=== PATIENT | female | born 1995 | race Two or more races ===

== ENCOUNTER 2020-01-29 15:34 | Outpatient (REF) | payer MEDICAID, SELFPAY | END 2020-01-29 15:35 | disposition home or self-care (01) | LOC: HO.LAB 15:34 | PROVIDERS: PCP Pediatrics; Visit Provider Internal Medicine | DX: Z20.828 Contact with and (suspected) exposure to other viral communicable diseases (principal) | CPT/HCPCS: C9803; U0003 ==

== ENCOUNTER 2021-12-20 11:33 | Emergency (ER) | payer MEDICAID, SELFPAY ==
--- NOTE | 2021-12-20 | ECG_ITS ---
Test Reason : chest pain Blood Pressure : / mmHG Vent. Rate : 074 BPM Atrial Rate : 074 BPM P-R Int : 154 ms QRS Dur : 098 ms QT Int : 388 ms P-R-T Axes : 074 -03 016 degrees QTc Int : 430 ms Normal sinus rhythm Incomplete right bundle branch block Borderline ECG No previous ECGs available Referred By: Generic ED Physician Electronically Signed By:TAYLER MCCLAIN MD
--- NOTE | ~2021-12-20 | XR_ITS ---
EXAMINATION: XR CHEST CLINICAL INFORMATION: Chest pain COMPARISON: None TECHNIQUE: 2 views of the chest were obtained. FINDINGS: The lungs are well expanded. There is no focal consolidation, edema, or effusion. No pneumothorax. The cardiomediastinal silhouette is within normal limits. No acute osseous abnormality. Scoliotic curvature of the spine. XR/XR chest 2V IMPRESSION: Clear lungs.
[2021-12-20 12:19] VITALS: BP 123/86; PULSE 78; RESP 18; TEMP 37; O2SAT 99; BMI 19.3
[2021-12-20 13:26] LABS: MANUAL DIFF FLAG NO
[2021-12-20 13:28] LABS: Basophils Percent Auto 0.3 % (0-2); Eosinophils Absolute Auto 0.4 X10*3/uL (0.0-0.4); Eosinophils Percent Auto 4.1 % (0-4); Hematocrit 32.7 % (37.0-47.0); Imm Gran Abs Auto 0.03 X10*3/uL (0.00-0.03); Imm Gran Pct Auto 0.3 % (0.0-0.4); Lymphocytes Percent Auto 19.8 % (20-40); Mean Corpuscular HGB Conc 30.6 g/dl (31.0-35.0); Mean Corpuscular Hemoglobin 22.5 pg (27.0-33.0); Mean Corpuscular Volume 73.5 fL (80.0-98.0); Monocytes Absolute Auto 0.7 X10*3/uL (0.1-1.2); Monocytes Percent Auto 7.3 % (2-11); Neutrophils Absolute Auto 6.8 x10*3/uL (2.0-8.3); Neutrophils Percent Auto 68.2 % (45-73); Platelet Count 187 X10*3/uL (160-400); Red Blood Count 4.45 X10*6/uL (4.20-5.50); Red Cell Distribution Width 17.7 % (11.0-16.0)
[2021-12-20 13:42] LABS: Anion Gap 12 (12-20); Blood Urea Nitrogen 7 mg/dL (9-16); Carbon Dioxide 23 mmol/L (22-29); Chloride 107 mmol/L (96-108); Creatinine Clr Calc Pharmacy 115.8; Estimated Glomerular Filt Rate > 60; Glucose Random 90 mg/dL (60-115); Potassium 4.4 mmol/L (3.3-5.1); Sodium 138 mmol/L (135-145)
[2021-12-20 14:31] LABS: Troponin-I High Sensitivity < 3.5 ng/L (<3.5-17.0)
[2021-12-20 17:06] VITALS: BP 115/87; PULSE 68; RESP 16; TEMP 36.8; O2SAT 98
--- NOTE | 2021-12-20 17:06 | ED.CHESTPAIN ---
HPI - Chest Pain General Chief Complaint: Chest Pain Stated Complaint: sent from doctors. CP Time Seen by Provider: 12/20/21 16:47 Source: patient Mode of arrival: ambulatory Limitations: no limitations History of Present Illness HPI narrative: 26-year-old female with a history of asthma, iron deficiency anemia presents with chest tightness since yesterday. Patient reports she felt a tightness while walking and had a little bit of cough and shortness of breath with. She thought maybe her asthma so she used her asthma inhaler with continued symptoms. She is our primary care doctor today and per patient her EKG was abnormal so she was referred into the emergency department for further evaluation. Patient denies any fevers, chills, cough, shortness of breath today. She denies any leg swelling or leg pain. No CP use. Patient did have COVID 3 weeks ago but has recovered from this. No recent travel Patient reports her father has cardiac disease with OK in the past as well as DVTs Related Data Home Medications Medication Instructions Recorded Confirmed ferrous sulfate 325 mg (65 mg 325 mg PO DAILY 01/05/20 01/05/20 iron) tablet Allergies Allergy/AdvReac Type Severity Reaction Status Date / Time No Known Allergies Allergy Unverified 11/05/19 19:33 Review of Systems Review of Systems: Yes all other systems are reviewed and are negative Constitutional: Constitutional: Reports no additional constitutional complaints, Denies body ache(s), Denies chills, Denies fever(s), Denies headache(s) and Denies weakness Eyes: Eyes: Reports no additional eye complaints and Denies change in vision ENT: Reports system reviewed and no additional complaints, except as documented, Denies dizziness, Denies headache(s), Denies nasal congestion, Denies nasal discharge and Denies neck pain Cardiovascular: Cardiovascular: Reports no additional cardiovascular complaints, Reports chest pain, Denies leg edema and Denies dyspnea Respiratory: Respiratory: Reports no additional respiratory complaints, Denies cough and Denies dyspnea Gastrointestinal: Gastrointestinal: Reports no additional gastrointestinal complaints, Denies abdominal pain, Denies diarrhea, Denies nausea and Denies vomiting Genitourinary: Genitourinary: Reports no additional female genitourinary complaints and Denies urinary incontinence Musculoskeletal: Musculoskeletal: Reports no additional musculoskeletal complaints, Denies back pain, Denies arthralgias, Denies joint swelling, Denies neck pain, Denies numbness and Denies tingling Integumentary/Breasts: Skin/Breast: Reports system reviewed and no additional complaints, except as docu and Denies rash Neurologic: Reports system reviewed and no additional complaints, except as documented, Denies Abnormal speech present, Denies dizziness, Denies headache(s), Denies numbness, Denies tingling and Denies weakness PMFSH Past Medical History Attestation statement: The following information was validated with the patient. Source: old records reviewed and nursing notes reviewed Medical History Asthma Chronic knee pain Iron deficiency anemia Low vitamin D level Surgical History H/O tubal ligation Family History Family History Mother Breast cancer Brother Diabetes Social History Social History Alcohol intake: former Advance Directives: No Advance Directives Information Provided: No Physical Exam Vital Signs: Vital Signs: Last Vital Signs Temp 98.2 F 12/20/21 17:06 Pulse 68 12/20/21 17:06 Resp 16 12/20/21 17:06 BP 115/87 12/20/21 17:06 Pulse Ox 98 12/20/21 17:06 O2 Del Method 12/20/21 17:06 BMI result Body Mass Index 19.3 Const: General: cooperative, healthy appearing, comfortable and no acute distress Orientation/consciousness: patient oriented x3 Limitations: no limitations HEENT: Head: Yes normal to inspection Ears: hearing grossly normal bilaterally General nose exam: Normal external nose present Face and sinus: Yes normal facial exam Mouth: Normal oral and palatal mucosa present Throat: Yes posterior oropharynx normal Eyes: General: appearance normal, both eyes and all related structures Pupils: Equal, round and reactive pupils present Neck: Neck: Yes normal visual inspection Chest: Chest palpation & inspection: normal inspection of the chest Resp: Effort & Inspection: normal respiratory effort Auscultation: clear to auscultation bilaterally Cardio: Rate: regular rate Rhythm: regular rhythm Peripheral pulses: Peripheral pulses 2+ throughout GI: Inspection: Yes normal to inspection Palpation (GI): Soft to palpation and nontender Auscultation: normal bowel sounds Back/Spine/Pelvis: Thoracic/Lumbar Spine: thoracic and lumbar spine normal to inspection Skin: General skin exam: no rashes or lesions noted Neuro: General: patient oriented x3, no focal motor deficits and normal sensation to monofilament Cranial nerves: Yes Equal, round and reactive pupils present Cognition (Neuro): normal cognition Speech: No Abnormal speech present Gait exam (Neuro): Normal gait present Motor exam (neuro): 5/5 motor strength present throughout Extrem: General: Yes normal to inspection, Yes no pedal edema and Yes no calf tenderness Course Course Course Narrative: Labs including troponin D-dimer negative. Chest x-ray shows no acute finding. EKG shows some nonspecific changes including an incomplete right bundle branch block. Chest pain is not exertional. Seems atypical for ACS. Will have patient follow-up with her primary care doctor. Reviewed worrisome signs and symptoms of when to return to the emergency room. Comfortable discharge home. MDM - Chest Pain MDM Narrative Medical decision making narrative: 26-year-old man with history of asthma, iron deficiency anemia here with chest tightness since yesterday. Seen at outpatient provider and referred in as she had an abnormal EKG per patient Will check EKG here, obtain labs and chest x-ray Consider PE, ACS, myocarditis Medical Records Data Attestation: I reviewed the patient's medical records. Lab Data Attestation: I reviewed the patient's lab results. Result diagrams: 12/20/21 13:22 12/20/21 13:22 Labs: Lab Results 12/20/21 12/20/21 12/20/21 Range/Units 13:22 13:22 13:22 WBC 10.0 (4.8-10.8) X10*3/uL RBC 4.45 (4.20-5.50) X10*6/uL Hgb 10.0 L (12.0-16.0) g/dl Hct 32.7 L (37.0-47.0) % MCV 73.5 L (80.0-98.0) fL MCH 22.5 L (27.0-33.0) pg MCHC 30.6 L (31.0-35.0) g/dl RDW 17.7 H (11.0-16.0) % Plt Count 187 (160-400) X10*3/uL MPV 12.0 (9.4-12.3) fL Immature Gran % (Auto) 0.3 (0.0-0.4) % Neut % (Auto) 68.2 (45-73) % Lymph % (Auto) 19.8 L (20-40) % [place] % (Auto) 7.3 (2-11) % Eos % (Auto) 4.1 H (0-4) % Baso % (Auto) 0.3 (0-2) % Lymph # (Auto) 2.0 (1.2-4.9) X10*3/uL [place] # (Auto) 0.7 (0.1-1.2) X10*3/uL Eos # (Auto) 0.4 (0.0-0.4) X10*3/uL Baso # (Auto) 0.0 (0.0-0.2) X10*3/uL Abs Immat Gran (auto) 0.03 (0.00-0.03) X10*3/uL Absolute Neuts (auto) 6.8 (2.0-8.3) x10*3/uL Absolute Nucleated RBC 0.000 (0.0-0.012) X10*3/uL Nucleated RBC % (auto) 0.0 (0.0-0.2) /100WBC PT (10.0-13.1) SEC INR (0.9-1.1) D-Dimer High Sensitivty NG/ML Sodium 138 (135-145) mmol/L Potassium 4.4 (3.3-5.1) mmol/L Chloride 107 (96-108) mmol/L Carbon Dioxide 23 (22-29) mmol/L Anion Gap 12 (12-20) BUN 7 L (9-16) mg/dL Creatinine 0.72 (0.5-1.4) mg/dL Estim Creat Clear Calc 115.8 Estimated GFR > 60 Random Glucose 90 (60-115) mg/dL Calcium 9.0 (8.4-10.2) mg/dL Troponin I High Sens < 3.5 (<3.5-17.0) ng/L 12/20/21 Range/Units 17:09 WBC (4.8-10.8) X10*3/uL RBC (4.20-5.50) X10*6/uL Hgb (12.0-16.0) g/dl Hct (37.0-47.0) % MCV (80.0-98.0) fL MCH (27.0-33.0) pg MCHC (31.0-35.0) g/dl RDW (11.0-16.0) % Plt Count (160-400) X10*3/uL MPV (9.4-12.3) fL Immature Gran % (Auto) (0.0-0.4) % Neut % (Auto) (45-73) % Lymph % (Auto) (20-40) % [place] % (Auto) (2-11) % Eos % (Auto) (0-4) % Baso % (Auto) (0-2) % Lymph # (Auto) (1.2-4.9) X10*3/uL [place] # (Auto) (0.1-1.2) X10*3/uL Eos # (Auto) (0.0-0.4) X10*3/uL Baso # (Auto) (0.0-0.2) X10*3/uL Abs Immat Gran (auto) (0.00-0.03) X10*3/uL Absolute Neuts (auto) (2.0-8.3) x10*3/uL Absolute Nucleated RBC (0.0-0.012) X10*3/uL Nucleated RBC % (auto) (0.0-0.2) /100WBC PT 11.7 (10.0-13.1) SEC INR 1.0 (0.9-1.1) D-Dimer High Sensitivty 172 NG/ML Sodium (135-145) mmol/L Potassium (3.3-5.1) mmol/L Chloride (96-108) mmol/L Carbon Dioxide (22-29) mmol/L Anion Gap (12-20) BUN (9-16) mg/dL Creatinine (0.5-1.4) mg/dL Estim Creat Clear Calc Estimated GFR Random Glucose (60-115) mg/dL Calcium (8.4-10.2) mg/dL Troponin I High Sens (<3.5-17.0) ng/L Imaging Data Chest x-ray: Attestation: I personally reviewed and interpreted this imaging study as follows: Radiologist's impression: COMPARISON: None TECHNIQUE: 2 views of the chest were obtained. FINDINGS: The lungs are well expanded. There is no focal consolidation, edema, or effusion. No pneumothorax. The cardiomediastinal silhouette is within normal limits. No acute osseous abnormality. Scoliotic curvature of the spine. XR/XR chest 2V IMPRESSION: Clear lungs. ? ECG Data ECG #1: Attestation: I personally reviewed and interpreted this ECG as follows: ECG interpretation date: 12/20/21 ECG interpretation time: 13:13 Interpretation: Sinus rhythm with a rate of 74, normal DC, normal QRS, incomplete right bundle branch block, Discharge Plan Discharge Clinical Impression: Chest pain Patient Disposition: Home, Self-Care Instructions: Chest Pain (DC) Additional Instructions: Your blood work, EKG and chest x-ray are reassuring Please continue to follow-up with primary care doctor for any persistent symptoms Return to the emergency room if things get worse Prescriptions: No Action ferrous sulfate 325 mg (65 mg iron) Tablet 325 mg PO DAILY Referrals: Carine Tapia MD [Primary Care Provider] - 1 week Stand Alone Forms: Work/School Release
[2021-12-20 17:30] LABS: Prothrombin Time 11.7 SEC (10.0-13.1)
[2021-12-20 17:32] LABS: D Dimer High Sensitivity 172 NG/ML
== END 2021-12-20 18:45 | disposition home or self-care (01) ==
PROVIDERS: Emergency Medicine; Nurse Practitioner Family; Emergency Provider Student in an Organized Health Care Education/Training Program; PCP Pediatrics
DX: R07.89 Other chest pain (principal); R05.9 Cough, unspecified; Z79.899 Other long term (current) drug therapy
CPT/HCPCS: 36415; 71046; 80048; 84484; 85025; 85379; 85610; 93005; 99283; 99284

== ENCOUNTER 2022-04-22 03:24 | Emergency (ER) | payer MEDICAID, SELFPAY ==
[2022-04-22 03:39] VITALS: BP 110/80; PULSE 75; O2SAT 100; BMI 21.6
--- NOTE | 2022-04-22 03:48 | ED_ITS ---
HPI - Alcohol General Chief Complaint: ETOH/Substance Use Stated Complaint: Etoh Time Seen by Provider: 04/22/22 03:40 Source: patient and EMS Mode of arrival: EMS History of Present Illness HPI narrative: 27-year-old female who is brought in by EMS when she was found intoxicated as a passenger but continued to have persistent vomiting and complained of dizziness. Related Data Home Medications Medication Instructions Recorded Confirmed ferrous sulfate 325 mg (65 mg 325 mg PO DAILY 01/05/20 01/05/20 iron) tablet Allergies Allergy/AdvReac Type Severity Reaction Status Date / Time No Known Allergies Allergy Unverified 11/05/19 19:33 Review of Systems Review of Systems: Pertinent positives and negatives as stated in HPI PMFSH Past Medical History Source: nursing notes reviewed Medical History Asthma Chronic knee pain Iron deficiency anemia Low vitamin D level Surgical History H/O tubal ligation Family History Family History Mother Breast cancer Brother Diabetes Social History Social History Alcohol intake: former Smoked in Last 30 Days: No Use of substances other than those prescribed or required for medical reasons: No Advance Directives: No Advance Directives Information Provided: No Patient : No Physical Exam ED Vital Signs: BMI result Body Mass Index 21.6 VITAL SIGNS: Reviewed. GENERAL: Well developed, well nourished, in no acute distress. HEAD: Normocephalic/atraumatic EYES: PERRLA, EOMI LUNGS: Normal breath sounds. No adventitious sounds or accessory muscle use. CARDIOVASCULAR: Regular rate and rhythm without noted murmurs ABDOMEN: Soft, non-tender, non-distended with bowel sounds. NEUROLOGIC: Drowsy but arouseable and oriented x 3. Strength and sensation to light touch were grossly intact x 4. Medical Decision Making Medical Decision Making [facility] Narrative: 27-year-old female who arrives intoxicated she will need to remain here under observation and states that she is able to call her on-call for a ride. Attem pts to ambulate her at bedside were limited success as she is still not entirely steady on her feet. Patient placed in physician observation because the patient needed more time to sober up. At the time observation was started the patient's vital signs were stable, patient is alert and oriented, neuro: Nonfocal, CV RRR, lungs clear Differential Diagnosis Please see the discussion above Discharge Plan Discharge Clinical Impression: Alcoholic intoxication Patient Disposition: Still a Patient Prescriptions: No Action ferrous sulfate 325 mg (65 mg iron) Tablet 325 mg PO DAILY Interventions: [place]-Suicide Risk Severity Scale Last Done: 04/22/22 03:46
--- NOTE | 2022-04-22 03:50 | PC.NURSE ---
pt aox4, n/v
[2022-04-22 06:00] VITALS: BP 132/89; PULSE 79; RESP 16; TEMP 36.8; O2SAT 100
--- NOTE | 2022-04-22 06:50 | PC.NURSE ---
pt eloped after agreeing to have labs done, while this nurse was collecting supplies for labs to be drawn pt eloped elopement was confirmed with security after looking at security cameras
== END 2022-04-22 07:15 | disposition left against medical advice (07) ==
PROVIDERS: Emergency Provider Student in an Organized Health Care Education/Training Program; PCP Pediatrics
DX: F10.129 Alcohol abuse with intoxication, unspecified (principal); R42 Dizziness and giddiness; R11.10 Vomiting, unspecified; Y90.9 Presence of alcohol in blood, level not specified
CPT/HCPCS: 99284; 99285

== ENCOUNTER 2023-06-25 09:32 | Outpatient (REF) | payer MEDICAID, SELFPAY ==
[2023-06-25 14:14] LABS: MANUAL DIFF FLAG NO
[2023-06-25 14:27] LABS: Basophils Absolute Auto 0.1 X10*3/uL (0.0-0.2); Eosinophils Absolute Auto 0.8 X10*3/uL (0.0-0.4); Hematocrit 34.3 % (37.0-47.0); Hemoglobin 10.9 g/dl (12.0-16.0); Lymphocytes Percent Auto 32.6 % (20-40); Mean Corpuscular HGB Conc 31.8 g/dl (31.0-35.0); Mean Corpuscular Hemoglobin 23.6 pg (27.0-33.0); Mean Corpuscular Volume 74.4 fL (80.0-98.0); Monocytes Absolute Auto 0.4 X10*3/uL (0.1-1.2); Monocytes Percent Auto 6.4 % (2-11); Neutrophils Absolute Auto 2.8 x10*3/uL (2.0-8.3); Platelet Count 186 X10*3/uL (160-400); Red Blood Count 4.61 X10*6/uL (4.20-5.50); Red Cell Distribution Width 16.8 % (11.0-16.0)
[2023-06-25 15:24] LABS: Iron 65 mcg/dL (30-160); Percent Iron Saturation 17 % (15-50); Total Iron Binding Capacity 393 mcg/dL (228-428); Unsaturated Iron Binding 328 ug/dL; Vitamin D 25-OH Total 25.2 ng/mL (>30)
[2023-06-25 16:18] LABS: CT PCR NOT DETECTED (Not Detect.); NG PCR NOT DETECTED (Not Detect.)
[2023-06-26 03:37] LABS: Syphilis Screen Nonreactive (Nonreactive)
[2023-06-26 04:22] LABS: HIV AB/AG Nonreactive (Nonreactive); HIV Num 1 0.04 S/CO (0.00-0.99); ~HepC Num1 0.12 S/CO (0.00-0.79); ~Hepatitis C Antibody Nonreactive (Nonreactive)
[2023-06-28 11:09] LABS: TS Negative Control Passed; TS Panel A 0; TS Panel B 0; TS Positive Control Passed; TSpotTB Negative (Negative)
== END 2023-06-25 09:33 | disposition home or self-care (01) ==
LOC: HO.CHCLDS 09:32
PROVIDERS: Visit Provider Pediatrics
DX: Z00.00 Encounter for general adult medical examination without abnormal findings (principal); Z11.4 Encounter for screening for human immunodeficiency virus [HIV]; Z11.1 Encounter for screening for respiratory tuberculosis; D50.0 Iron deficiency anemia secondary to blood loss (chronic); R79.89 Other specified abnormal findings of blood chemistry
CPT/HCPCS: 0353U; 36415; 82306; 83540; 85025; 86481; 86780; 86803; 87389

== ENCOUNTER 2023-10-11 09:38 | Outpatient (REF) | payer MEDICAID, SELFPAY ==
[2023-10-11 14:19] LABS: MANUAL DIFF FLAG NO
[2023-10-11 14:46] LABS: Basophils Percent Auto 0.9 % (0-2); Eosinophils Absolute Auto 0.4 X10*3/uL (0.0-0.4); Eosinophils Percent Auto 8.5 % (0-4); Hematocrit 36.5 % (37.0-47.0); Hemoglobin 11.7 g/dl (12.0-16.0); Lymphocytes Absolute Auto 1.8 X10*3/uL (1.2-4.9); Lymphocytes Percent Auto 39.2 % (20-40); Mean Corpuscular HGB Conc 32.1 g/dl (31.0-35.0); Mean Corpuscular Hemoglobin 25.8 pg (27.0-33.0); Mean Corpuscular Volume 80.6 fL (80.0-98.0); Mean Platelet Volume 13.8 fL (9.4-12.3); Monocytes Absolute Auto 0.3 X10*3/uL (0.1-1.2); Monocytes Percent Auto 6.8 % (2-11); Neutrophils Percent Auto 44.6 % (45-73); Platelet Count 189 X10*3/uL (160-400); Red Blood Count 4.53 X10*6/uL (4.20-5.50); Red Cell Distribution Width 14.3 % (11.0-16.0); White Blood Count 4.6 X10*3/uL (4.8-10.8)
[2023-10-11 15:10] LABS: Syphilis Screen Nonreactive (Nonreactive)
[2023-10-11 15:12] LABS: HIV AB/AG Nonreactive (Nonreactive); HIV Num 1 0.05 S/CO (0.00-0.99); ~HepC Num1 0.29 S/CO (0.00-0.79); ~Hepatitis C Antibody Nonreactive (Nonreactive)
[2023-10-11 15:18] LABS: Vitamin D 25-OH Total 27.9 ng/mL (>30)
[2023-10-11 15:24] LABS: Folate 8.3 ng/mL (> or = 4.0); Vitamin B12 610 pg/mL (200-900)
[2023-10-11 16:07] LABS: CT PCR NOT DETECTED (Not Detect.); NG PCR NOT DETECTED (Not Detect.)
== END 2023-10-11 09:39 | disposition home or self-care (01) ==
LOC: HO.CHCLDS 09:38
PROVIDERS: Visit Provider Pediatrics
DX: R79.89 Other specified abnormal findings of blood chemistry (principal); D50.0 Iron deficiency anemia secondary to blood loss (chronic); Z11.3 Encounter for screening for infections with a predominantly sexual mode of transmission
CPT/HCPCS: 36415; 82306; 82607; 82746; 85025; 86780; 86803; 87389; 87491; 87591

== ENCOUNTER 2024-04-23 14:16 | Outpatient (REF) | payer MEDICAID, SELFPAY ==
--- OUTSIDE RECORDS SUMMARY | 2024-04-23 17:31 | XMS_ITS | Encounter Summary ---
Author Organization [employer] Address [address] [place] [address] Care Team Providers Care Mill Machinist Name Role Phone Carine Tapia MD Primary Care Provider [phone] Reason for Visit * Reason Onset Date Comments Appointment Request 05/21/2022 Encounter Details Date Type Department Care Team ([facility] st Contact Info) Description 05/21/2022 Telephone [facility] [address] [place] [address] Carine Tapia MD [address] [place] [address] Appointment Request Social History Tobacco Use Types Packs/Day Years Used Date Smoking Tobacco: Never Assessed Comments Unknown Sex and Gender Information Value Date Recorded Sex Assigned at Female 12/18/2021 10:34 AM EDT Legal Sex Female 10:34 AM EDT Gender Identity Female 12/18/2021 10:34 AM EDT Sexual Orientation Straight 12/18/2021 10 :34 AM EDT documented as of this encounter Miscellaneous Notes * Telephone Encounter - Doug Lee - 05/21/2022 10:31 AM EDT Tc from pt requesting a Appt for a physical exam, pt stated work is requiring pt to have an updatedphysical. Animal Damage Control Agent attempted to book appt with PCP no available appt. Pt stated wont mind being seen by a different provider. Please contact pt at [phone] documented in this encounter Plan of Treatment Not on file documented as of this encounter Visit Diagnoses Not on filedocumented in this encounter Care Teams Mill Machinist Relationship Specialty Start Date End Date Carine Tapia MD [address] [place] [id number] PCP - General Family Medicine 10/23/17 documented as of this encounter
--- OUTSIDE RECORDS SUMMARY | 2024-04-23 17:31 | XMS_ITS | Encounter Summary ---
Author Organization [employer] Address [address] [place] [address] Care Team Providers Care Leather Drier Name Role Phone Carine Tapia MD Primary Care Provider Encounter Details Date Type Department Care Team (Latest Contact Info) Description 04/23/2024 Travel Social History Tobacco Use Types Packs/Day Years Used Date Smoking Tobacco: Never Passive Smoke Exposure: Never Smokeless Tobacco: Never Alcohol Answer Date Recorded Frequency of Alcohol Consumption Not on file 06/25/2023 Average Number of Drinks Not on file 024 Frequency of Binge Drinking Not on file 08/2023 Score 0 06/25/2023 Depression Answer Date Recorded Patient Health Questionnaire-9 Score 8 06/25/2023 Patient Health Questionnaire-9 Score 8 06/25/2023 Last PHQ-9: Questionnaire Data Not on file 0 06/25/2023 Housing Stability Answer Date Recorded What is your housing situation today? I have efrain whitman 06/25/[address] you li ve. Do you have problems with any of the following? None of the above 06/25/2023 Food Insecurity Answer Date Recorded Within the past 12 months, y ou worried that your food would run out before you got money to buy more: Never True 06/25/2023 Within the past 12 months,th e food you bought just didn't last and you didn't have enough money to get more: Never True 08/2023 Transportation Answer Date Recorded In the past 12 months, has l ack of transportation kept you from medical appts, meetings, work or from getting things needed for daily living? No 06/25/2023 Utilities Answer Date Recorded In the past 12 months, has t he electric, gas, oil or water company threatened to shut off services in your home? No 06/25/2023 Depression Answer Date Recorded Patient Health Questionnaire-2 Score 2 06/25/2023 Comments Unknown Sex and Gender Information Value Date Recorded Sex Assigned at Female 12/18/2021 10:34 AM EDT Legal Sex Female 10:34 AM EDT Gender Identity Female 12/18/2021 10:34 AM EDT Sexual Orientation Straight 12/18/2021 10 :34 AM EDT documented as of this encounter Plan of Treatment Not on file documented as of this encounter Visit Diagnoses Not on filedocumented in this encounter Additional Health Concerns Assessment Noted Time PHQ-9 Depression Total Score: 8 06/25/19 24 9:12 AM EDT documented as of this encounter Care Teams Leather Drier Relationship Specialty Start Date End Date Carine Tapia MD [address] [place] [address] PCP - General Family Medicine 10/23/17 documented as of this encounter
--- OUTSIDE RECORDS SUMMARY | 2024-04-23 17:31 | XMS_ITS | Encounter Summary ---
Author Organization [employer] Address [address] [place] [address] [address] [place] [address] Care Team Providers Care Glass Grinder Name Role Phone Carine Tapia MD Primary Care Provider [phone] Reason for Referral * Consultation (Routine) - Closed Specialty Diagnoses / Procedures Referred By Contashley t Referred To Contact Genetics Diagnoses Family history of breast cancer in mother Family history of ovarian cancer Carine Tapia MD [address] [place] [address] Phone: tel: fax: [address] Phone: tel: fax: Referral ID Status Reason Start Date Expiration Date V isits Requested Visits Authorized [id number] Closed Specialty Services Required 04/23/2024 04/23/2025 1 1 Encounter Details Date Type Department Care Team (Latest Contact Info) Description 04/23/2024 9:30 AM EST Procedure Visit [facility] [address] [place] [address] Carine Tapia MD [address] [place], [place] [id number] Encounter for gynecological examination (general) (routine) without abnormal findings (Primary Dx); Family history of breast cancer in mother; Family history of ovarian cancer Social History Tobacco Use Types Packs/Day Years [...] your housing situation today? I have efrain j carlos 06/25/[address] you li [...] AM EDT documented as of this encounter Last Filed Vital Signs Vital Sign Reading Time Taken Comments Blood Pressure 126/93 04/23/2024 9:28 AM EST Pulse 86 04/23/2024 9:28 AM EST Temperature 36.8 ??C (98.3 ??F) 04/23/2024 9:28 AM ES T Respiratory Rate 16 04/23/2024 9:28 AM EST Oxygen Saturation 100% 04/23/2024 9:28 AM EST Inhaled Oxygen Concentration - - Weight 66.7 kg (147 lb) 04/23/2024 9:28 AM EST Height 172.7 cm (5' 8 ) 04/23/2024 9:28 AM EST Body Mass Index 22.35 04/23/2024 9:28 AM EST documented in this encounter Progress Notes * Carine Tapia MD - 04/23/2024 9:30 AM EST Subjective Norris Butler is a 29 y.o. No obstetric history on file. woman here for pap. LMP: 04/03/24 Menses frequency:monthly Menses concerns:none Desires within the next year:no Brith control: tubal ligation Breast concerns: breast pain sometimes Negative for: nipple discharge,lumps etc.. Menopausal symptoms : N/A Review of Systems Review of Systems Constitutional: Negative for activity change, chills, fever and unexpected weight change. Respiratory: Negative for cough, shortness of breath and wheezing. Cardiovascular: Negative for chest pain, palpitations and leg swelling. Gastrointestinal: Negative for abdominal pain and blood in stool. Endocrine: Negative for polydipsia and polyuria. Genitourinary: Negative for decreased urine volume, difficulty urinating, dysuria and hematuria. Musculoskeletal: Negative for arthralgias and gait problem. Skin: Negative for color change and rash. Neurological: Negative for dizziness and headaches. Hematological: Negative for adenopathy. Psychiatric/Behavioral: Negative for dysphoric mood, hallucinations, sleep disturbance and suicidalideas. The patient is not nervous/anxious. No results found for: PAPPA No results found for: [facility] Previous paps:normal in 2020 Mammogram: N/A Objective BP (!) 126/93 (BP Location: Left arm, Patient Position: Sitting, BP Cuff Size: Adult) Pulse 86 Temp 98.3 ??F (36.8 ??C) (Oral) Resp 16 Ht 5' 8 (1.727 m) Wt 147 lb (66.7 kg) LMP 04/06/2024 (Exact Date) SpO2 100% BMI 22.35 kg/m?? Physical Exam Vitals reviewed. Exam conducted with a rehabilitation center manager present. Constitutional: Appearance: Normal appearance. Cardiovascular: Rate and Rhythm: Normal rate and regular rhythm. Chest: Chest wall: No mass, deformity or tenderness. Breasts: Dre Score is 5. Right: Normal. No bleeding, inverted nipple, mass, nipple discharge, skin change or tenderness. Left: Normal. No bleeding, inverted nipple, mass, nipple discharge, skin change or tenderness. Genitourinary: Exam position: Lithotomy position. Dre stage (genital): 5. Labia: Right: No rash, lesion or injury. Left: No rash, lesion or injury. Vagina: Normal. Cervix: Erythema present. No cervical motion tenderness, friability or lesion. Uterus: Normal. Not tender. Adnexa: Right: No mass, tenderness or fullness. Left: No mass, tenderness or fullness. Lymphadenopathy: Upper Body: Right upper body: No axillary adenopathy. Left upper body: No axillary adenopathy. Problem List Items Addressed This Visit None Pap with HPV testing done STI testing offered, PreP not needed, 1 partner Preventative care and harm reduction discussed Has TBL for control RTC in 6 months.Sooner if needed.Call with results if abnormal. Referral to genetics done due to family hx of breast and ovarian Cancer on maternal side.Patient agrees. documented in this encounter Plan of Treatment Scheduled Orders Name Type Priority Associated Diagnoses Orde r Schedule Pap Smear Pathology and Cytology Routine Encounter for gynecological examination (general) (routine) without abnormal findings Ordered: 04/23/2024 STI testing add on (NG, CT, Trich) Pathology and Cytology Routine Encounter for gynecological examination (general) (routine) without abnormal findings Ordered: 04/23/2024 Scheduled Referrals Name Type Priority Associated Diagnoses Orde r Schedule Referral to Genetics Outpatient Referral Routine Family history of breast cancer in mother Family history of ovarian cancer Expected: 04/23/2024 (Approximate), Expires: 04/23/2025 documented as of this encounter Visit Diagnoses Diagnosis Encounter for gynecological examination (general) (routine) without abnormal findings- Primary Family history of breast cancer in mother Family history of malignant neoplasm of breast Family history of ovarian cancer Family history of malignant neoplasm of ovary documented in this encounter Additional Health Concerns Assessment Noted Time PHQ-9 Depression Total Score: 8 06/25/19 24 9:12 AM EDT documented as of this encounter Care Teams Glass Grinder Relationship Specialty Start Date End Date Carine Tapia MD [address] [place] [id number] PCP - General Family Medicine 10/23/17 documented as of this encounter
--- OUTSIDE RECORDS SUMMARY | 2024-04-23 17:31 | XMS_ITS | Clinical Summary ---
Author Organization [employer] Address [address] [facility] 7t [place] [address] Care Team Providers Care Metaphysics Teacher Name Role Phone Carine Tapia MD Primary Care Provider [phone] Allergies No known active allergies Medications Albuterol Sulfate 108 (90 Base) MCG/ACT aerosol powder Inhale 1 Inhalation every 6 (six) hours if needed (shortness of breath). 1 each 2 3 Active albuterol (2.5 MG/3ML) 0.083% nebulizer solution Take 3 mL by nebulization every 8 (eight) hours if needed for wheezing. 75 mL 3 3 Active amitriptyline (Elavil) 25 MG tablet Take 1 tablet (25 mg) by mouth at bedtime. 30 tablet 5 4 Active fluticasone (Flonase) 50 MCG/ACT nasal spray USE ONE SPRAY IN EACH NOSTRIL DAILY 16 g 11 4 Active ibuprofen 400 MG tablet TAKE 1 TABLET BY MOUTH EVERY 8 HOURS NEEDED FOR PAIN 90 tablet 3 4 Active cholecalciferol (Vitamin D-3) 50 MCG (2000 UT) capsule Take 1 capsule (50 mcg) by mouth Once per day. 90 capsule 11 4 Active ferrous sulfate 325 (65 Fe) MG tablet Take 1 tab orally bid 60 tablet 4 Active Active Problems Problem Noted Date Diagnosed Date Adjustment insomnia 06/25/2023 Asthma 11/15/2022 Upper respiratory infection 11/15/2022 Assessment & Plan (02/07/2023 11:07 PM EST): Pt with symptoms of likely viral URI wnl VS Exam : ENT and lungs normal -hydration supportive tx w tylenol , NSAIDs prn -alarm signs and symptoms discussed -rest at home until better -advised to repeat test for covid if symptoms worsening to confirm result Assessment & Plan (11/15/2022 11:48 PM EDT): Pt with symptoms of likely viral URI wnl VS Exam : with nasal congestion , no currently wheezing on exam but symptoms consistent w mild asthma exacerbation reactive to infection Here flu,covid test are neg EKG: NSR,no ischemic findings - hydration supportive tx w tylenol , NSAIDs prn -alarm signs and symptoms discussed -rest at home until better -advised to repeat test for covid if symptoms worsening to confirm result Environmental allergies 06/22/2022 Iron deficiency anemia due to chronic blood loss 01/23/2018 Low vitamin D level 01/23/2018 Encounters Date Type Department Care Team Description 04/23/2024 9:30 AM EST Procedure Visit [facility] [address] [place] [address] Carine Tapia MD Encounter for gynecological examination (general) (routine) without abnormal findings (Primary Dx); Family history of breast cancer in mother; Family history of ovarian cancer 04/23/2024 Travel from Last 3 Months Immunizations Name Administration Dates Next Due Influenza injectable quadrivalent preservative f ree 01/25/2021 Influenza, seasonal, injectable, preservative fr ee 11/08/2023 Tdap 04/21/2019 Family History Medical History Relation Name Comments Ovarian cancer Maternal Grandmother Breast cancer Mother Relation Name Status Comments Maternal Grandmother Mother Social History Tobacco Use Types Packs/Day Years Used Date Smoking Tobacco: Never Passive Smoke Exposure: Never Smokeless Tobacco: Never Tobacco Cessation:Counseling Given: Not Answered Alcohol Answer Date Recorded Frequency of Alcohol [...] Orientation Straight 12/18/2021 10 :34 AM EDT Last Filed Vital Signs Vital Sign Reading [...] Mass Index 22.35 04/23/2024 9:28 AM EST Plan of Treatment Health Maintenance Due Date Last Done Comments Hepatitis B Vaccines (1 of 3 - 19+ 3-dose series) 02/01/2012 Pneumococcal Vaccine: Pediatrics (0 to 5 Years) and At-Risk Patients (6 to 49) Years) (1 of 2 - PCV) 02/01/2012 HPV/Cotest 2023 COVID-19 Vaccine ( season) 2023 01/30/2022, 02/22/2021, 07/25/2020 Cervical Cancer Screening 01/26/2024 Pap Smear 01/26/2024 01/25/2021 Alcohol/Substance Use Screening 06/24/2024 06/25/2023 Depression Screening 06/24/2024 06/25/2023, 06/25/19 24 Family Planning (PISQ) 06/24/2024 06/25/2023 SDOH Screening 06/24/2024 06/25/2023 Tobacco Screening 04/23/2025 04/23/2024 DTaP/Tdap/Td Vaccines (2 - Td or Tdap) 04/20/2029 04/21/2019 Zoster Vaccines (1 of 2) 2043 RSV Patients and Patients Aged 60 years or older (1 - 1-dose 75+ series) 02/01/2068 HIV Screening Completed 10/11/2023, 05/0 08/2023, 06/22/2022, Additional history exists Hepatitis C Screening Completed 10/11/2023 , 06/25/2023, 06/22/2022, Additional history exists Influenza Vaccine Completed 11/08/2023, 01/25/2021 HIB Vaccines Aged Out No longer eligi ble based on patient's age to complete this topic HPV Vaccines Aged Out No longer eligi ble based on patient's age to complete this topic Hepatitis A Vaccines Aged Out No long er eligible based on patient's age to complete this topic IPV Vaccines Aged Out No longer eligi ble based on patient's age to complete this topic Meningococcal Vaccine Aged Out No shraddha cherelle eligible based on patient's age to complete this topic RSV under 20 months Aged Out No longe r eligible based on patient's age to complete this topic Rotavirus Vaccines Aged Out No longer eligible based on patient's age to complete this topic Procedures Procedure Name Priority Date/Time Associated Diagnosis Comments HEPATITIS C AB W/REFL TO HCV RNA, QN, PCR Routine 10/11/2023 9:40 AM EDT Low vitamin D level Iron deficiency anemia due to chronic blood loss Routine screening for STI (sexually transmitted infection) HIV 1/2 ANTIGEN/ANTIBODY, FOURTH GENERATION W/RFL Routine 10/11/2023 9:40 AM EDT Low vitamin D level Iron deficiency anemia due to chronic blood loss Routine screening for STI (sexually transmitted infection) THINPREP IMAGING SYSTEM PAP Routine 01/25/2021 9:38 AM EST from Last 3 Months or Most Recently Relevant to Health Maintenance Results * Hepatitis C Antibody with Reflex to HCV, RNA, Quantitative, Real-Time PCR (10/11/2023 9:40 AM EDT) Hepatitis C Antibody Nonreactive Nonreactive [facility] Comment:Antibodies to HCV no t detected; does not exclude early acuteHCV infection. Blood Venous blood specimen / Unknown 10/11/2023 9:40 AM EDT 10/11/2023 2:19 PM EDT us Carine Tapia MD LAB BLOOD ORDERABLES Final Re sult [facility] [address] [place] [address] [phone] * HIV-1/2 Antigen and Antibodies, Fourth Generation, with Reflexes (10/11/2023 9:40 AM EDT) HIV AB/AG Nonreactive Nonreactive [facility] Comment:HIV-1 p24 Ag and/or HIV-1/HIV-2 Ab not detected.A test result that is nonreactive does not exclude thepossibility of exposure to or infection with HIV-1 and/orHIV-2. Nonreactive results in this assay for individualswith prior exposure to HIV-1 and/or HIV-2 may be due toantigen and antibody levels that are below the limit ofdetection of this assay.The [email or web address] HIV Ag/Ab Combo assay result andsupplemental assay results should be interpreted inconjunction with the patient's clinical presentation,history and other laboratory results. If the results areinconsistent with clinical evidence, additional testing issuggested to confirm the result. Blood Venous blood specimen / Unknown 10/11/2023 9:40 AM EDT 10/11/2023 2:19 PM EDT us Carine Tapia MD LAB BLOOD ORDERABLES Final Re sult Performing Organization Address [facility]/ZIP Co de Phone Number [facility] [address] [place] [address] [phone] * THINPREP TIS PAP (01/25/2021 9:38 AM EST) Clinical Information: None given [facility] COMMENT SEE COMMENT [facility] Comment: EXPLANATORY NOTE: ? The Pap is a screening test for cervical cancer. It is ?? not a diagnostic test and is subject to false negative ?? and false positive results. It is most reliable when a ?? satisfactory sample, regularly obtained, is submitted ?? with relevant clinical findings and history, and when ?? the Pap result is evaluated along with historic and ?? current clinical information. ?? COMMENT: This Pap test has been evaluated with computer assisted technology. [employer] [employer] : SEE COMMENT [facility] Comment: BLC,CT(ASCP) CT screening location: [address] ??[id number] Infection Shift in vaginal dillon suggestive of bacterial vaginosis. [facility] Interpretation/R esult: Negative for intraepithelial lesion or malignancy. [employer] LMP: NONE GIVEN [facility] Prev. BX: NONE GIVEN [facility] Prev. PAP: NONE GIVEN [facility] SOURCE: None given [facility] Statement Of Adequacy: SEE COMMENT [employer] [facility] Comment: Satisfactory for evaluation. Endocervical/transformation zone component present. Age and/or menstrual status not provided 01/25/2021 9:38 AM EST us Carine Tapia MD LAB PATHOLOGY ORDERABLES Paige l Result Performing Organization Address [facility]/ZIP Co de Phone Number [employer] [address] from Last 3 Months or Most Recently Relevant to Health Maintenance Insurance [facility] C3 Care Teams Metaphysics Teacher Relationship Specialty Start Date End Date Carine Tapia MD [address] [place] [id number] PCP - General Family Medicine 10/23/17
== END 2024-04-23 14:17 | disposition home or self-care (01) ==
LOC: HO.HHCLNP 14:16
PROVIDERS: Visit Provider Pediatrics
DX: Z01.419 Encounter for gynecological examination (general) (routine) without abnormal findings (principal)
CPT/HCPCS: 87491; 87591; 87661; 88175

== ENCOUNTER 2024-06-19 14:13 | Outpatient (REF) | payer MEDICAID, SELFPAY ==
--- OUTSIDE RECORDS SUMMARY | 2024-06-19 14:30 | XMS_ITS | Encounter Summary ---
Author Organization [employer] Address [address] [facility] [address] [place] [address] Care Team Providers Care Weight Count Operator Name Role Phone Carine Tapia MD Primary Care Provider [phone] Encounter Details Date Type Department Care Team (Latest Contact Info) Description 06/19/2024 Travel Social History Tobacco Use Types Packs/Day [...] as of this encounter Plan of Treatment Upcoming Encounters Date Type Department Care Team (Late st Contact Info) Description 08/04/2024 9:15 AM EDT Office Visit [facility] [address] [place] [address] Carine Tapia MD [address] [place] [address] documented as of this encounter Visit Diagnoses Not on filedocumented in this encounter Additional Health Concerns Assessment Noted Time PHQ-9 Depression Total Score: 8 06/25/19 24 9:12 AM EDT documented as of this encounter Care Teams Weight Count Operator Relationship Specialty Start Date End Date Carine Tapia MD [address] [place] [address] PCP - General Family Medicine 10/23/17 documented as of this encounter
--- OUTSIDE RECORDS SUMMARY | 2024-06-19 14:30 | XMS_ITS | Encounter Summary ---
Author Organization [employer] Address 75 [facility] 7t [place] [address] Care Team Providers Care Cleaning Staff Supervisor Name Role Phone Carine Tapia MD Primary Care Provider [phone] Reason for Visit * Reason Onset Date Comments Nurse Triage 06/19/2024 Encounter Details Date Type Department Care Team ([facility] st Contact Info) Description 06/19/2024 Telephone [facility] [address] [place] [address] Carine Tapia MD [address] [place] [address] Nurse Triage Social History Tobacco Use Types Packs/Day Years [...] encounter Miscellaneous Notes * Telephone Encounter - Tova Raza RN - 06/19/2024 9:51 AM EDT Called pt. She states that she has been having pain in her stomach and blood in urine x 1 week. Pt states also that she has pain and bleeding with intercourse as well. Pt. Also thinks she has a cellulitis in her vaginal area and has a bump inside vaginal area that is painful. No fever. Appt. Scheduled for 1130am with PCP. Protocol Used: Urination Pain - Female (Adult) Protocol-Based Disposition: See in Office or Video Visit Todayat 1130am with PCP. Video visit offer not recorded Positive Triage Questions: * Painful urination AND EITHER frequency or urgency * All other females with painful urination, or patient wants to be seen * All higher-acuity triage questions were negative Care Advice Discussed: * Reassurance and Education - Possible Urine Infection * Drink Extra Fluids * Telephone Encounter - Tanesha Lei - 06/19/2024 9:44 AM EDT Symptom: Urine - Blood In Outcome: Schedule an urgent appointment (within 1 hour) or talk to a nurse or provider soon Reason: Caller denied all higher acuity questions The caller accepted this outcome. [phone] documented in this encounter Plan of Treatment Upcoming Encounters Date Type Department Care Team ([facility] st Contact Info) Description 08/04/2024 9:15 AM EDT Office Visit [facility] [address] [place] [address] Carine Tapia MD [address] [place] [address] documented as of this encounter Visit Diagnoses Not on filedocumented in this encounter Additional Health Concerns Assessment Noted Time PHQ-9 Depression Total Score: 8 06/25/19 24 9:12 AM EDT documented as of this encounter Care Teams Cleaning Staff Supervisor Relationship Specialty Start Date End Date Carine Tapia MD [address] [place] [address] PCP - General Family Medicine 10/23/17 documented as of this encounter
--- OUTSIDE RECORDS SUMMARY | 2024-06-19 14:30 | XMS_ITS | Encounter Summary ---
Author Organization [employer] Address 75 [facility] 7t [place] [address] Care Team Providers Care General Labor Name Role Phone Carine Tapia MD Primary Care Provider [phone] Reason for Visit * Reason Comments Med Refill Encounter Details Date Type Department Care Team ([facility] Contact Info) Description 06/17/2024 Refill [facility] [address] [place], [place] [phone] Yasmeen Terry MD [address] [place] [address] Social History Tobacco Use Types Packs/Day Years [...] Description 08/04/2024 9:15 AM EDT Office Visit [facility] [address] [place] [address] Carine Tapia MD [address] [place] [address] documented as of this encounter Visit Diagnoses Not on filedocumented in this encounter Additional Health Concerns Assessment Noted Time PHQ-9 Depression Total Score: 8 06/25/19 24 9:12 AM EDT documented as of this encounter Care Teams General Labor Relationship Specialty Start Date End Date Carine Tapia MD [address] [place] [address] PCP - General Family Medicine 10/23/17 documented as of this encounter
--- OUTSIDE RECORDS SUMMARY | 2024-06-19 14:30 | XMS_ITS | Clinical Summary ---
Author Organization [employer] Address [address] [facility] 7t [place] [address] Care Team Providers Care Gristmill Operator Name Role Phone Carine Tapia MD Primary Care Provider [phone] Allergies No known active allergies Medications Albuterol Sulfate 108 (90 Base) MCG/ACT aerosol powder Inhale 1 Inhalation every 6 (six) hours if needed (shortness of breath). 1 each 2 11/16/19 23 Active fluticasone (Flonase) 50 MCG/ACT nasal spray USE ONE SPRAY IN EACH NOSTRIL DAILY 16 g 11 06/25/19 24 Active ibuprofen 400 MG tablet TAKE 1 TABLET BY MOUTH EVERY 8 HOURS NEEDED FOR PAIN 90 tablet 3 06/25/19 24 Active cholecalcifero l (Vitamin D-3) 50 MCG (1999 UT) capsule Take 1 capsule (50 mcg) by mouth Once per day. 90 capsule 11 11/08/19 24 Active ferrous sulfate 325 (65 Fe) MG tablet Take 1 tab orally bid 60 tablet 01/06/20 24 Active amitriptyline (Elavil) 25 MG tablet TAKE ONE TABLET EVERY NIGHT AT BEDTIME 30 tablet 5 05/19/19 25 Active albuterol (2.5 MG/3ML) 0.083% nebulizer solution INHALE ONE AMPULE USING A NEBULIZER EVERY 8 HOURS NEEDED FOR WHEEZING 90 mL 1 06/18/19 25 Active albuterol (2.5 MG/3ML) 0.083% nebulizer solution Take 3 mL by nebulization every 8 (eight) hours if needed for wheezing. 75 mL 3 11/16/19 23 025 Discontinued Active Problems Problem Noted Date Diagnosed Date [...] Encounters Date Type Department Care Team Description 06/19/2024 11:30 AM EDT Office Visit [facility] [address] [place] [address] Carine Tapia MD Dysuria (Primary Dx); Acute vaginitis 06/19/2024 Travel 06/19/2024 Telephone [facility] [address] [place] [address] Carine Tapia MD Nurse Triage 06/17/2024 Refill [facility] [address] [place] [address] Yasmeen Terry MD 05/18/2024 Refill [facility] [address] [place] [address] Carine Tapia MD 05/08/2024 Telephone [facility] [address] [place] [address] Carine Tapia MD Lab Orders 05/01/2024 Population Health Risk Score [facility] (C[facility]) Department [address] [place] [address] [phone] Provider, Population Health Generic 04/23/2024 9:30 AM EST Procedure Visit [facility] [address] [place], [place] [phone] Carine Tapia MD Encounter for gynecological examination [...] the past 12 months, has t he [employer] oil or water company threatened to shut [...] Sign Reading Time Taken Comments Blood Pressure 129/90 06/19/2024 11:43 AM EDT Pulse 88 06/19/2024 11:43 AM EDT Temperature 37.1 ??C (98.7 ??F) 06/19/2024 11:43 AM E DT Respiratory Rate 16 06/19/2024 11:43 AM EDT Oxygen Saturation 100% 04/23/2024 9:28 AM EST Inhaled Oxygen Concentration - - Weight 67.6 kg (149 lb) 06/19/2024 11:43 AM EDT Height 172.7 cm (5' 8 ) 06/19/2024 11:43 AM EDT Body Mass Index 22.66 06/19/2024 11:43 AM EDT Plan of Treatment Upcoming Encounters Date Type Department Care Team (Late st Contact Info) Description 08/04/2024 9:15 AM EDT Office Visit [facility] [address] [place] [address] Carine Tapia MD [address] [place] [address] Health Maintenance Due Date Last Done Comments Hepatitis B Vaccines (1 of 3 - 19+ 3-dose series) 02/01/2012 Pneumococcal Vaccine: Pediatrics (0 to 5 Years) and At-Risk Patients (6 to 49) Years) (1 of 2 - PCV) 02/01/2012 COVID-19 Vaccine ( season) 2023 01/30/2022, 02/22/2021, 07/25/2020 Alcohol/Substance Use Screening 06/24/2024 06/25/2023 Depression Screening 06/24/2024 06/25/2023, 06/25/19 24 Family Planning (PISQ) 06/24/2024 06/25/2023 SDOH Screening 06/24/2024 06/25/2023 Tobacco Screening 04/23/2025 04/23/2024 DTaP/Tdap/Td Vaccines (2 - Td or Tdap) 04/20/2029 04/21/2019 Cervical Cancer Screening 04/23/2029 HPV/Cotest 04/23/2029 Pap Smear 04/23/2029 04/23/2024, 01/25/2021 Zoster Vaccines (1 of 2) 2043 RSV Patients and Patients Aged 60 years or older (1 - 1-dose 75+ series) 02/01/2068 HIV Screening Completed 10/11/2023, 08/2023, 06/22/2022, Additional history exists Hepatitis C [...] Procedure Name Priority Date/Time Associated Diagnosis Comments POCT URINALYSIS DIPSTICK Routine 06/19/2024 11:53 AM EDT Dysuria CHLAMYDIA/N. GONORRHOEAE AND T. VAGINALIS RNA, QUAL,TMA Routine 04/23/2024 9:45 AM EST Encounter for gynecological examination (general) (routine) without abnormal findings PAP SMEAR Routine 04/23/2024 Encounter for gynecological examination (general) (routine) without abnormal findings HEPATITIS C AB W/REFL TO HCV RNA, QN, PCR Routine 10/11/2023 9:40 AM EDT Low vitamin D level Iron deficiency anemia due to chronic blood loss Routine screening for STI (sexually transmitted infection) HIV 1/2 ANTIGEN/ANTIBODY, FOURTH GENERATION W/RFL Routine 10/11/2023 9:40 AM EDT Low vitamin D level Iron deficiency anemia due to chronic blood loss Routine screening for STI (sexually transmitted infection) from Last 3 Months or Most Recently Relevant to Health Maintenance Results * POCT Urinalysis (06/19/2024 11:53 AM EDT) Color, UA Yellow Clarity, UA Clear Glucose, UA Negative Bilirubin, UA Negative Ketones, UA Negative Spec Grav, UA 1.020 Blood, UA Negative Negative, None Detected pH, UA 7.0 Protein, UA Negative Urobilinogen, UA 0.2 Leukocytes, UA Negative Negative, Rare, Trace Nitrite, UA Negative Negative, None Detected Appearance, UA clear QC Media Lot # [id number] Lot# Expiration Date Urine 06/19/2024 11:5 3 AM EDT Carine Tapia MD POINT OF CARE TEST ENTER/EDIT ORDERABLES Final Result * STI testing add on (NG, CT, Trich) (04/23/2024 9:45 AM EST) Trichomonas (NAAT) [facility] CTNG Ref Lab [facility] Comment:TEST NOT PERFORMEDSp ecimen transport device didnot contain the collection swab. NG Ref Lab [facility] ThinPrep?? vial Cervix uteri structure / Unknown 04/23/2024 9:45 AM EST 05/01/2024 1:01 PM EDT Narrative [facility] - 05/08/2024 1:23 PM EDT Collection Date: [id number] by: JEFERSON Means: Cervix Carine Tapia MD LAB CYTOLOGY ORDERABLES Final Result [facility] [address] [place] [phone] * Pap Smear (04/23/2024) Swab Cervical swab / Unknown 04/23/2024 05/06/2024 6:14 AM EDT Narrative [facility] - 05/20/2024 6:28 AM EDT ----- ------- Name: Norris Carvalho ? Age/Sex: 29/F ? : 1995 Unit#: [id number] ?? Attend Dr: Carine Tapia MD ?Re04/23/24 ?Status: DEP REF ? Location: HO.HHCLNP ? Disch: ? ----- ------- SPEC : [id number] ? RECD: 05/06/24-613 ? STATUS: ??SOUT ? REQ NUM: [id number] ? CORKY: 04/23/24- ? SUBM DR: Carine Tapia MD ? ENTERED: ??05/06/24-614 ?SP TYPE: Pap Smr ?OTHR DR: ? ORDERED: ??Pap Smear ? Interpretation ?? Satisfactory for evaluation. ?? Negative for intraepithelial lesion or malignancy. ?? Coccobacilli consistent with shift in vaginal dillon. ? HPV High Risk: ??Negative ? HPV Genotyping 16: ??Negative ?? HPV Genotyping 18: ??Negative ?Clinical Information LMP: Unk Previous PAP test: Unk Other surgery: Other history: ? Material Received ?? ThinPrep ----- ------- Signed (signature on file) MJ Palomares ([facility]) 05/20/24627 ? ----- ------- ? END OF REPORT ? Carine Tapia MD LAB CYTOLOGY ORDERABLES Final Result Performing Organization Address [facility]/ZIP Co de Phone Number [facility] [address] [place] [address] [phone] * Hepatitis C Antibody with Reflex to HCV, RNA, Quantitative, Real-Time PCR (10/11/2023 9:40 AM EDT) [facility] Hepatitis C Antibody Nonreactive Nonreactive [facility] Comment:Antibodies to HCV no t detected; does not exclude early acuteHCV infection. Blood Venous blood specimen / Unknown 10/11/2023 9:40 AM EDT 10/11/2023 2:19 PM EDT us Carine Tapia MD LAB BLOOD ORDERABLES Final Re sult Performing Organization Address [facility]/ZIP Co de Phone Number [facility] [address] [place] [phone] * HIV-1/2 Antigen and Antibodies, Fourth Generation, with Reflexes (10/11/2023 9:40 AM EDT) [facility] HIV AB/AG Nonreactive Nonreactive [facility] Comment:HIV-1 p24 Ag and/or HIV-1/HIV-2 Ab not detected.A test result that is nonreactive does not exclude thepossibility of exposure to or infection with HIV-1 and/orHIV-2. Nonreactive results in this assay for individualswith prior exposure to HIV-1 and/or HIV-2 may be due toantigen and antibody levels that are below the limit ofdetection of this assay.The [employer] HIV Ag/Ab Combo assay result andsupplemental assay results should be interpreted inconjunction with the patient's clinical presentation,history and other laboratory results. If the results areinconsistent with clinical evidence, additional testing issuggested to confirm the result. Blood Venous blood specimen / Unknown 10/11/2023 9:40 AM EDT 10/11/2023 2:19 PM EDT Carine Tapia MD LAB BLOOD ORDERABLES Final Re sult [facility] [address] [place] [address] [phone] from Last 3 Months or Most Recently Relevant to Health Maintenance Insurance [facility] C3 Care Teams Gristmill Operator Relationship Specialty Start Date End Date Carine Tapia MD [address] [place] [phone] PCP - General Family Medicine 10/23/17
--- OUTSIDE RECORDS SUMMARY | 2024-06-19 14:30 | XMS_ITS | Encounter Summary ---
Author Organization [employer] Address [address] [facility] [address] [place] [address] Care Team Providers Care Or Manager Name Role Phone Carine Tapia MD Primary Care Provider [phone] Encounter Details Date Type Department Care Team ([facility] Contact Info) Description 06/19/2024 11:30 AM EDT Office Visit [facility] MED & PEDS [address], [place] [phone] Carine Tapia MD [address] [place] [address] Dysuria (Primary Dx); Acute vaginitis Social History Tobacco Use Types Packs/Day Years [...] 16 06/19/2024 11:43 AM EDT Oxygen Saturation - - Inhaled Oxygen Concentration - - Weight 67.6 kg (149 lb) 06/19/2024 11:43 AM EDT Height 172.7 cm (5' 8 ) 06/19/2024 11:43 AM EDT Body Mass Index 22.66 06/19/2024 11:43 AM EDT documented in this encounter Plan of Treatment Upcoming Encounters Date Type Department Care Team (Late st Contact Info) Description 08/04/2024 9:15 AM EDT Office Visit [facility] MED & PEDS [address] [place] [address] Carine Tapia MD [address] [place] [address] Scheduled Orders Name Type Priority Associated Diagnoses Orde r Schedule Bacterial Vaginosis Panel Microbiology Routine Acute vaginitis Ordered: 06/19/2024 Chlamydia/N. Gonorrhoeae RNA, TMA, Urogenitial Microbiology Routine Acute vaginitis Ordered: 06/19/2024 documented as of this encounter Procedures Procedure Name Priority Date/Time Associated Diagnosis Comments POCT URINALYSIS DIPSTICK Routine 06/19/2024 11:53 AM EDT Dysuria documented in this encounter Results * POCT Urinalysis (06/19/2024 11:53 AM [...] OF CARE TEST ENTER/EDIT ORDERABLES Final Result documented in this encounter Visit Diagnoses Diagnosis Dysuria- Primary Acute vaginitis Unspecified vaginitis and vulvovaginitis documented in this encounter Additional Health Concerns Assessment Noted Time PHQ-9 Depression Total Score: 8 06/25/19 24 9:12 AM EDT documented as of this encounter Care Teams Or Manager Relationship Specialty Start Date End Date Carine Tapia MD [address] [place] [address] PCP - General Family Medicine 10/23/17 documented as of this encounter
--- OUTSIDE RECORDS SUMMARY | 2024-06-19 14:30 | XMS_ITS | Encounter Summary ---
Author Organization [employer] Address [address] [facility] [address] [place] [address] Care Team Providers Care Application Packager Name Role Phone Carine Tapia MD Primary Care Provider [phone] Reason for Visit * Reason Onset Date Comments Appointment Request 05/21/2022 Encounter Details Date Type Department Care Team ([facility] Contact Info) Description 05/21/2022 Telephone [facility] MEDICINE [address] [place] [address] Carine Tapia MD [address] [place] [address] Appointment Request Social History Tobacco Use Types [...] is requiring pt to have an updatedphysical. Ribbon Cutter attempted to book appt with PCP no available appt. Pt stated wont mind being seen by a different provider. Please contact pt at [phone] documented in this encounter Plan of Treatment Upcoming Encounters Date Type Department Care Team (Late Contact Info) Description 08/04/2024 9:15 AM EDT Office Visit [facility] MED & PEDS [address] [place] [address] Carine Tapia MD [address] [place] [address] documented as of this encounter Visit Diagnoses Not on filedocumented in this encounter Care Teams Application Packager Relationship Specialty Start Date End Date Carine Tapia MD [address] [place] [address] PCP - General Family Medicine 10/23/17 documented as of this encounter
[2024-06-20 12:04] LABS: Bacterial Vaginosis PCR POSITIVE (Negative); Candida Group PCR NOT DETECTED (Not Detect); Candida glab krusei PCR NOT DETECTED (Not Detect); Trichomonas vaginalis PCR NOT DETECTED (Not Detect)
[2024-06-20 16:06] LABS: CT PCR NOT DETECTED (Not Detect.); NG PCR NOT DETECTED (Not Detect.)
== END 2024-06-19 14:14 | disposition home or self-care (01) ==
LOC: HO.CHCLNP 14:13
PROVIDERS: Visit Provider Pediatrics
DX: N76.0 Acute vaginitis (principal)
CPT/HCPCS: 81515; 87491; 87591

== ENCOUNTER 2024-08-04 10:04 | Outpatient (REF) | payer MEDICAID, SELFPAY ==
--- OUTSIDE RECORDS SUMMARY | 2024-08-04 11:27 | XMS_ITS | Clinical Summary ---
Author Organization [employer] Address [address] [place] [address] 7 [place] [address] Care Team Providers Care Cota Name Role Phone Carine Tapia MD Primary Care Provider [phone] Allergies No known active allergies Medications Albuterol Sulfate 108 (90 Base) MCG/ACT aerosol powder Inhale 1 Inhalation every 6 (six) hours if needed (shortness of breath). 1 each 2 3 Active fluticasone (Flonase) 50 MCG/ACT nasal spray [...] tab orally bid 60 tablet 4 Active amitriptyline (Elavil) 25 MG tablet TAKE ONE TABLET EVERY NIGHT AT BEDTIME 30 tablet 5 5 Active albuterol (2.5 MG/3ML) 0.083% nebulizer solution INHALE ONE AMPULE USING A NEBULIZER EVERY 8 HOURS NEEDED FOR WHEEZING 90 mL 1 5 Active loratadine (Claritin) 10 MG tablet Take 1 tablet (10 mg) by mouth Once per day. 90 tablet 3 5 08/05/19 26 Active Active Problems Problem Noted Date Diagnosed [...] Encounters Date Type Department Care Team Description 08/04/2024 9:15 AM EDT Office Visit [facility] MED & PEDS [address] [place] [address] Carine Tapia MD Iron deficiency anemia due to chronic blood loss (Primary Dx); Low vitamin D level; Chronic fatigue 08/04/2024 Travel 07/24/2024 Patient Outreach [facility] MEDICINE [address] [place] [phone] Carine Tapia MD Pre-visit Planning (SDOH screening negative and Tobacco screening negative) 06/21/2024 Orders Only [facility] MED & PEDS [address] [place] [address] Carine Tapia MD 06/19/2024 11:30 AM EDT Office Visit [facility] MED & PEDS [address] [place] [address] Carine Tapia MD Dysuria (Primary Dx); Acute vaginitis 06/19/2024 Travel 06/19/2024 Telephone [facility] MEDICINE [address] [place] [phone] Carine Tapia MD Nurse Triage 06/17/2024 Refill [facility] WALK-IN CENTER [address] [place] [address] Yasmeen Terry MD 05/18/2024 Refill [facility] CHC MED & PEDS [address] [place] [address] Carine Tapia MD 05/08/2024 Telephone [facility] MEDICINE [address] [place] [address] Carine Tapia MD Lab Orders from Last 3 Months Immunizations Immunization Administration Dates Next Due Influenza injectable quadrivalent [...] Answer Date Recorded Patient Health Questionnaire-9 Score 4 08/04/2024 Patient Health Questionnaire-9 Score 4 08/04/2024 Last PHQ-9: Questionnaire Data Not on file 0 08/04/2024 Housing Stability Answer Date Recorded What is your housing situation today? I have efrain whitman 07/24/[address] you li ve. Do you have problems with any of the following? None of the above 07/24/2024 Food Insecurity Answer Date Recorded Within the past 12 months, y ou worried that your food would run out before you got money to buy more: Never True 07/24/2024 Within the past 12 months,th e food you bought just didn't last and you didn't have enough money to get more: Never True 07/2024 Transportation Answer Date Recorded In the past 12 months, has l ack of transportation kept you from medical appts, meetings, work or from getting things needed for daily living? No 07/24/2024 Utilities Answer Date Recorded In the past 12 months, has t he electric, gas, oil or water company threatened to shut off services in your home? No 07/24/2024 Depression Answer Date Recorded Patient Health Questionnaire-2 Score 1 08/04/2024 Internet Access Answer Date Recorded Internet Access Q1 Yes 07/24/2024 Internet Access Q2 Not on file 07/24/2024 Comments Unknown Sex and Gender Information Value Date Recorded Sex Assigned at Female 12/18/2021 10:34 AM EDT Legal Sex Female 10:34 AM EDT Gender Identity Female 12/18/2021 10:34 AM EDT Sexual Orientation Straight 12/18/2021 10 :34 AM EDT Last Filed Vital Signs Vital Sign Reading Time Taken Comments Blood Pressure 119/78 08/04/2024 9:25 AM EDT Pulse 66 08/04/2024 9:25 AM EDT Temperature 36.9 ??C (98.5 ??F) 08/04/2024 9:25 AM ED T Respiratory Rate 16 08/04/2024 9:25 AM EDT Oxygen Saturation 100% 04/23/2024 9:28 AM EST Inhaled Oxygen Concentration - - Weight 67.1 kg (148 lb) 08/04/2024 9:25 AM EDT Height 176.5 cm (5' 9.5 ) 08/04/2024 9:25 AM EDT Body Mass Index 21.54 08/04/2024 9:25 AM EDT Plan of Treatment Health Maintenance Due Date Last Done Comments Family Planning (PISQ) 02/01/2008 Hepatitis B Vaccines (1 of 3 - 19+ 3-dose series) 02/01/2012 Pneumococcal Vaccine: Pediatrics (0 to 5 Years) and At-Risk Patients (6 to 49) Years (1 of 2 - PCV) 02/01/2012 COVID-19 Vaccine ( season) 2023 01/30/2022, 02/22/2021, 07/25/2020 SDOH Screening 07/24/2025 07/24/2024 Alcohol/Substance Use Screening 08/04/2025 08/04/2024 Depression Screening 08/04/2025 08/04/2024, 08/05/19 Disability Screening 08/04/2025 08/04/2024 Tobacco Screening 08/04/2025 08/04/2024 DTaP/Tdap/Td Vaccines (2 - Td or Tdap) [...] patient's age to complete this topic Meningococcal B Vaccine Aged Out No l onger eligible based on patient's age to complete [...] Procedure Name Priority Date/Time Associated Diagnosis Comments CHLAMYDIA/N. GONORRHOEAE RNA, TMA, UROGENITAL Routine 06/19/2024 12:00 PM EDT Acute vaginitis BACTERIAL VAGINOSIS PANEL Routine 06/19/2024 12:00 PM EDT Acute vaginitis POCT URINALYSIS DIPSTICK Routine 06/19/2024 11:53 AM EDT Dysuria PAP SMEAR Routine 04/23/2024 Encounter for gynecological [...] Recently Relevant to Health Maintenance Results * (ABNORMAL) Bacterial Vaginosis Panel (06/19/2024 12:00 PM EDT) TRICHOMONAS VAGINALIS DETECTION BY PCR NOT DETECTED Not Detect [facility] BACTERIAL VAGINOSIS DETECTION BY PCR POSITIVE(A) Negative [facility] Comment:The BV organism targ ets of the Xpert Xpress MVP test can becommensal in women; Xpert Xpress MVP positive results forbacterial vaginosis should be considered in conjunction withother clinical and patient information to determine thedisease status. Organisms that are not detected by the XpertXpress MVP test have also been reported to be associatedwith BV and aerobic vaginitis.The Xpert Xpress MVP test performance has not been evaluatedin patients under the age of 14. BETH GROUP DETECTION BY PCR NOT DETECTED Not Detect [facility] Beth glab krusei PCR NOT DETECTED Not Detect [facility] Swab Vaginal structure / Unknown 06/19/2024 12:00 PM EDT 06/19/2024 5:43 PM EDT us Carine Tapia MD LAB MICROBIOLOGY - GENERAL OR DERABLES Final Result [facility] [address] [place] [phone] * Chlamydia/N. Gonorrhoeae RNA, TMA, Urogenitial (06/19/2024 12:00 PM EDT) CT PCR NOT DETECTED Not Detect. [facility] Comment:A not detected test result does not exclude the possibilityof infection because test results can be affected byimproper specimen collection, concurrent antibiotic therapy,or the number of organisms in the specimen which may bebelow the sensitivity of the test. As with many diagnostictests, results from the Xpert CT/NG assay should beinterpreted in conjunction with other laboratory andclinical data available to the clinician.Xpert CT/NG performance has not been evaluated in patientsless than 14 years of age. The assay should not be used forthe evaluationof suspected sexual abuse or for other medico-legalindications. Additional testing is recommended in anycircumstance when false positive or false negative resultscould lead to adverse medical, social or psychologicalconsequences. NG PCR NOT DETECTED Not Detect. [facility] Comment:A not detected test result does not exclude the possibilityof infection because test results can be affected byimproper specimen collection, concurrent antibiotic therapy,or the number of organisms in the specimen which may bebelow the sensitivity of the test. As with many diagnostictests, results from the Xpert CT/NG assay should beinterpreted in conjunction with other laboratory andclinical data available to the clinician.Xpert CT/NG performance has not been evaluated in patientsless than 14 years of age. The assay should not be used forthe evaluationof suspected sexual abuse or for other medico-legalindications. Additional testing is recommended in anycircumstance when false positive or false negative resultscould lead to adverse medical, social or psychologicalconsequences. Swab (Vaginal Swab) 06/19/2024 12:00 PM EDT 06/19/2024 5:43 PM EDT Narrative [facility] - 06/20/2024 4:06 PM EDT Vaginal us Carine Tapia MD LAB MICROBIOLOGY - GENERAL OR DERABLES Final Result [facility] [address] [place] [phone] * POCT Urinalysis (06/19/2024 11:53 AM EDT) [...] Media Lot # [id number] Lot# Expiration Date 025 Urine 06/19/2024 11:5 3 AM EDT Carine Tapia MD POINT OF CARE TEST ENTER/EDIT ORDERABLES Final Result * Pap Smear (04/23/2024) Swab Cervical swab / Unknown 04/23/2024 05/06/2024 6:14 AM EDT Narrative [facility] - 05/20/2024 6:28 AM EDT ----- ------- Name: Norris Carvalho ? Age/Sex: 29/F ? : 1995 Unit#: [id number] ?? Attend Dr: Carine Tapia MD ?Re04/23/24 ?Status: DEP REF ? Location: HO.HHCLNP ? Disch: ? ----- ------- SPEC : [id number] ? RECD: 05/06/24 ? STATUS: ??SOUT ? REQ NUM: [id number] ? CORKY: 04/23/24- ? SUBM DR: Carine Tapia MD ? ENTERED: ??05/06/24 ?SP TYPE: Pap Smr ?OTHR : ? ORDERED: ??Pap Smear ? Interpretation ?? Satisfactory for evaluation. ?? Negative for intraepithelial lesion or malignancy. ?? Coccobacilli consistent with shift in vaginal dillon. ? HPV High Risk: ??Negative ? HPV Genotyping 16: ??Negative ?? HPV Genotyping 18: ??Negative ?Clinical Information LMP: Unk Previous PAP test: Unk Other surgery: Other history: ? Material Received ?? ThinPrep ----- ------- Signed (signature on file) Bill MJ Solorio (ASCP) 05/20/24 0628 ? ----- ------- ? END OF REPORT ? Carien Tapia MD LAB CYTOLOGY ORDERABLES Final Result Performing Organization Address [facility] Co de Phone Number [facility] [address] [place] [address] [phone] * Hepatitis C Antibody with Reflex to HCV, RNA, Quantitative, Real-Time PCR (10/11/2023 9:40 AM EDT) Pathologist [facility] Hepatitis C Antibody Nonreactive Nonreactive [facility] Comment:Antibodies to HCV no t detected; does not exclude early acuteHCV infection. Blood Venous blood specimen / Unknown 10/11/2023 9:40 AM EDT 10/11/2023 2:19 PM EDT Carine Tapia MD LAB BLOOD ORDERABLES Final Re sult Performing Organization Address [facility] Co de Phone Number [facility] [address] [place] [address] [phone] * HIV-1/2 Antigen and Antibodies, Fourth Generation, with Reflexes (10/11/2023 9:40 AM EDT) HIV AB/AG Nonreactive Nonreactive [facility] Comment:HIV-1 p24 Ag and/or HIV-1/HIV-2 Ab not detected.A test result that is nonreactive does not exclude thepossibility of exposure to or infection with HIV-1 and/orHIV-2. Nonreactive results in this assay for individualswith prior exposure to HIV-1 and/or HIV-2 may be due toantigen and antibody levels that are below the limit ofdetection of this assay.The [employer] HIV Ag/Ab Combo assay result andsupplemental assay results should be interpreted inconjunction with the patient's clinical presentation,history and other laboratory results. If the results areinconsistent with clinical evidence, additional testing issuggested to confirm the result. Blood Venous blood specimen / Unknown 10/11/2023 9:40 AM EDT 10/11/2023 2:19 PM EDT us Carine Tapia MD LAB BLOOD ORDERABLES Final Re sult [facility] [address] [place] [phone] from Last 3 Months or Most Recently Relevant to Health Maintenance Insurance [facility] C3 Care Teams Cota Relationship Specialty Start Date End Date Carine Tapia MD [address] [place] [address] PCP - General Family Medicine 10/23/17
[2024-08-04 14:30] LABS: MANUAL DIFF FLAG NO
[2024-08-04 14:35] LABS: Basophils Absolute Auto 0.1 X10*3/uL (0.0-0.2); Basophils Percent Auto 1.1 % (0-2); Eosinophils Absolute Auto 0.4 X10*3/uL (0.0-0.4); Eosinophils Percent Auto 6.5 % (0-4); Hematocrit 34.5 % (37.0-47.0); Hemoglobin 10.7 g/dl (12.0-16.0); Imm Gran Abs Auto 0.02 X10*3/uL (0.00-0.03); Imm Gran Pct Auto 0.4 % (0.0-0.4); Lymphocytes Absolute Auto 2.4 X10*3/uL (1.2-4.9); Lymphocytes Percent Auto 42.3 % (20-40); Mean Corpuscular Hemoglobin 22.4 pg (27.0-33.0); Mean Corpuscular Volume 72.3 fL (80.0-98.0); Monocytes Absolute Auto 0.5 X10*3/uL (0.1-1.2); Monocytes Percent Auto 9.4 % (2-11); Neutrophils Absolute Auto 2.3 x10*3/uL (2.0-8.3); Neutrophils Percent Auto 40.3 % (45-73); Platelet Count 227 X10*3/uL (160-400); Red Blood Count 4.77 X10*6/uL (4.20-5.50); Red Cell Distribution Width 16.5 % (11.0-16.0); White Blood Count 5.7 X10*3/uL (4.8-10.8)
[2024-08-04 14:53] LABS: Iron 27 mcg/dL (30-160); Percent Iron Saturation 8 % (15-50); Total Iron Binding Capacity 354 mcg/dL (228-428); Unsaturated Iron Binding 327 ug/dL
[2024-08-04 15:09] LABS: TSH reflex Free T4 0.89 uIU/mL (0.32-4.0); Vitamin D 25-OH Total 24.3 ng/mL (>30)
== END 2024-08-04 10:05 | disposition home or self-care (01) ==
LOC: HO.CHCLDS 10:04
PROVIDERS: Visit Provider Pediatrics
DX: D50.0 Iron deficiency anemia secondary to blood loss (chronic) (principal); R79.89 Other specified abnormal findings of blood chemistry
CPT/HCPCS: 36415; 82306; 83540; 84443; 85025

== ENCOUNTER 2024-10-25 15:09 | Emergency (ER) | payer MEDICAID, SELFPAY ==
--- NOTE | ~2024-10-25 | XR_ITS ---
CLINICAL HISTORY: cp Two views of the chest. COMPARISON: XR chest dated 12/20/21 at 14:17 EDT FINDINGS: Normal heart and mediastinal contours. No consolidation. No pleural effusion or pneumothorax. [place] left curvature of the lower thoracic spine. No acute fracture. IMPRESSION: 1. No consolidation. This document has been electronically signed by: Yung Gibson MD on 10/25/2024 17:17:05
[2024-10-25 15:23] VITALS: BP 127/70; PULSE 119; RESP 20; TEMP 38.6; O2SAT 100; BMI 20.7
--- NOTE | 2024-10-25 15:31 | ECG_ITS ---
Test Reason : SOB Blood Pressure : */* mmHG Vent. Rate : 109 BPM Atrial Rate : 109 BPM P-R Int : 148 ms QRS Dur : 98 ms QT Int : 352 ms P-R-T Axes : 76 -10 41 degrees QTcB Int : 474 ms Sinus tachycardia Incomplete right bundle branch block Nonspecific T wave abnormality Abnormal ECG When compared with ECG of 20-Dec-2021 13:13, T wave inversion now evident in Anterior leads Referred By: Generic ED Physician Electronically Signed By: PILI REDMOND MD
--- NOTE | 2024-10-25 15:57 | ED.GENADULT ---
HPI - General Adult General Chief complaint: General Medical Stated complaint: flu like symptoms Time Seen by Provider: 10/25/24 16:08 Source: patient Mode of arrival: ambulatory Limitations: no limitations History of Present Illness ED Provider: Elbert Horta HPI narrative: 29 yold female with pmh of iron deficiency anemia presents to the ED for headache ,bodacyhes, coughs, and chills since this AM. Related Data Home Medications ?Medication ?Instructions ?Recorded ?Confirmed ferrous sulfate 325 mg (65 mg 325 mg PO DAILY 01/05/20 01/05/20 iron) tablet Allergies Allergy/AdvReac Type Severity Reaction Status Date / Time No Known Allergies Allergy Verified 10/25/24 15:28 Review of Systems Review of Systems: chills, headache, bodyacehes runny nose Yes all other systems are reviewed and are negative [facility] Past Medical History Medical History Asthma Chronic knee pain Iron deficiency anemia Low vitamin D level Surgical History H/O tubal ligation Family History Family History Mother Breast cancer Brother Diabetes Social History Social History Alcohol intake: former Advance Directives: No Advance Directives Information Provided: No Physical Exam ED Vital Signs: Vital Signs - 24 hr 10/25/24 15:23 Temperature 101.4 F H Pulse Rate 119 H Respiratory Rate 20 Blood Pressure 127/70 Pulse Oximetry 100 Oxygen Delivery Method Room Air BMI result Body Mass Index 20.7 Const General: cooperative, healthy appearing, comfortable, no acute distress, well developed, alert, awake and Physically active Orientation/consciousness: patient oriented x3 HENMT Head: Yes normal to inspection, Yes No palpable skull fracture present, Yes normocephalic and Yes atraumatic Ears: hearing grossly normal bilaterally, external ears normal, TM's normal bilaterally, TM normal on the right, TM normal on the left, EAC's normal, mastoids normal and no periauricular adenopathy Throat: Yes posterior oropharynx normal, Yes tonsils normal and Yes uvula midline Eyes General: appearance normal, both eyes and all related structures Neck Neck: Yes normal visual inspection, Yes full ROM, Yes no lymphadenopathy, Yes no meningeal signs, Yes trachea midline, Yes supple, No anterior neck swelling and No tender Chest Chest palpation & inspection: normal inspection of the chest and normal palpation of entire chest wall Resp Effort & Inspection: normal respiratory effort and able to speak in complete sentences Auscultation: clear to auscultation bilaterally Cardio Jugular venous distension: no JVD Heart sounds: S1 normal heart sound present and S2 normal heart sound present GI Inspection: Yes normal to inspection Palpation (GI): Soft to palpation, not firm, nontender, no guarding and not rigid General: Yes no CVA tenderness Back/Spine/Pelvis Back: no CVA tenderness and No back tenderness Skin General skin exam: no rashes or lesions noted, elasticity normal and turgor normal Neuro General: patient oriented x3, gait normal, tone normal, moves all extremities, Normal light touch and pain sensation and no meningeal signs Extrem General: Yes normal to inspection, Yes full ROM and Yes capillary refill normal Psych Appearance: grossly normal, well kempt and not disheveled Course Course Course Narrative: RME: 29 year female presents to ED for headache chest pain body aches runny nose since this morning. Patient is febrile tachy. Tylenol ordered SARs strep chest x-ray ordered Medications Administered Discontinued Medications Generic Name Dose Route Start Last Admin Trade Name Freq PRN Reason Stop Dose Admin Acetaminophen 975 mg 10/25/24 15:57 10/25/24 16:08 Acetaminophen 325 Mg Tablet PO 10/25/24 15:58 975 mg ONCE ONE Administration Medical Decision Making Medical Decision Making [facility] Narrative: 29 yold female presents to ED for URI symptoms. Patient states chills, headache, chest pain, body aches and runny nose since this morning. Patient denies any shortness of breath. Patient well-appearing. Patient is febrile tachy patient given Tylenol. Patient is not toxic appearing. Patient is educated on supportive care such as fluids and Tylenol Motrin for pain fever relief. Patient explained worrisome signs and informed to return to the ED immediately Differential Diagnosis Differential Diagnoses: The differential diagnosis associated with the presentation includes (COVID influenza strep) Admission/Observation Consideration of admission/observation: Escalation of care including admission/observation considered Lab Data [facility] Lab Attestation statement: I reviewed the patient's lab results. Labs: Lab Results 10/25/24 Range/Units 15:46 COVID-19 (AMBER) Positive A (Negative) COVID-19 Clin Com See Note Influenza Type A (TERA) Negative (Negative) Influenza Type B (TERA) Negative (Negative) Influenza A & B Note See Note S. pyogenes GrpA TERA Negative (Negative) Independent Interpretation I performed an independent interpretation of an: Plain X-Ray Radiology Impression Discussion of test interpretation with radiology: I have reviewed the radiologist's reading. Independent Historian Clinical information obtained from an independent historian. History obtained from or confirmed by: Other (Patient is) Prescription Management I considered prescription management with: Pain Medication Discharge Plan Discharge Clinical Impression: COVID-19 Patient Disposition: Home, Self-Care Instructions: COVID-19 (Coronavirus Disease 2019) (ED) Additional Instructions: Recommend oral hydration and rest. Tylenol Motrin can be used for pain or fever relief. Recommend follow up with primary care provider. Return to the ED immediately for any chest pain, shortness of breath, weakness, dizziness intractable fever, or any other concerning symptoms. Prescriptions: No Action ferrous sulfate 325 mg (65 mg iron) Tablet 325 mg PO DAILY Referrals: Carine Tapia MD [Primary Care Provider, Medical] - 2 days Referral Note: COVID Clinical Impression: COVID-19 Stand Alone Forms: Work/School Release Interventions: ED Discharge Assessment Last Done: 10/25/24 16:33 Discharge Date/Time: 10/25/24 16:33 Print Language: Croatian
[2024-10-25 16:04] LABS: COVID-19 Test Positive (Negative); IDNOW Serial# 08D9AD1C
[2024-10-25 16:12] LABS: IDNOW Serial# 6674DD1D; Influenza B2 Negative (Negative)
--- OUTSIDE RECORDS SUMMARY | 2024-10-25 16:15 | XMS_ITS | Encounter Summary ---
Author Organization [employer] Address [address] [facility] 7[address] [place] [address] Care Team Providers Care Nutrition Specialist Name Role Phone Carine Tapia MD Primary Care Provider [phone] Encounter Details Date Type Department Care Team ([facility] Contact Info) Description 10/25/2024 Orders Only GENERIC EXTERNAL DATA DEPARTMENT Provider, Generic External Data Social History Tobacco Use Types Packs/Day Years [...] t he electric, gas, oil or water [email or web address] threatened to shut off services in your [...] on file documented as of this encounter Procedures Procedure Name Priority Date/Time Associated Diagnosis Comments INFLUENZA A B2 ID NOW (HICKEY) Routine 10/25/2024 3:46 PM EDT COVID-19 ID NOW (HICKEY) Routine 10/25/2024 3:46 PM EDT documented in this encounter Results * Influenza A B2 ID NOW (Hickey) (10/25/2024 3:46 PM EDT) IDNOW SERIAL# [id number] [facility] Influenza A Negative Negative [facility] Influenza B2 Negative Negative [facility] Influenza A B2 Note See Note [facility] Comment:The Hickey ID NOW In fluenza A B2 test is used for thequalitative detection of influenza A and B from patientswith signs and symptoms of respiratory infection.Negative results do not preclude influenza virus infectionand should not be used as the sole basis for diagnosis,treatment or other patient management decisions.There is a risk of false negative results due to thepresence of variants in the viral targets of the assay, lowlevels of virus in the specimen and co- infection withRespiratory Syncytial Virus. 10/25/2024 3:46 PM EDT 10/25/2024 3:51 PM EDT us Generic External Data Provider LAB MICROBIOLOGY - GENERAL ORDERABLES Final Result [facility] [address] [place] [address] [phone] * (ABNORMAL) COVID-19 ID NOW (HICKEY) (10/25/2024 3:46 PM EDT) IDRODDYW SERIAL# [id number] [facility] COVID-19 TEST Positive (A) Negative [facility] COVID-19 NOTE See Note [facility] Comment: Results are for the identification of SARS-CoV2 RNA. TheSARS-CoV2 RNA is generally detectable in respiratory samplesduring the acute phase of infection. Positive results areindicative of the presence of SARS-CoV-2 RNA; clinicalcorrelation with patient history and other diagnosticinformation is necessary to determine patient infectionstatus. Positive results do not rule out bacterial infectionor co- infection with other viruses.Testing facilities within the [facility] and itsterritories are required to report all positive results tothe appropriate public health authorities.Negative results should be treated as presumptive and, ifinconsistent with clinical signs and symptoms or necessaryfor patient management, should be tested with differentauthorized or cleared molecular tests. Negative results donot preclude SARS-CoV2 RNA infection and should not be usedas the sole basis for patient management decisions. Negativeresults should be considered in the context of a patient'srecent exposures, history and the presence of clinical signsand symptoms consistent with COVID-19.This test has been authorized by the FDA under an EmergencyUse Authorization (EUA) for use by authorized laboratories.Testing performed on the Hickey ID NOW utilizing NAAT. 10/25/2024 3:46 PM EDT 10/25/2024 3:51 PM EDT us Generic External Data Provider LAB MOLECULAR RASHAD GNOSTICS ORDERABLES Final Result [facility] [address] [place] [phone] [phone] documented in this encounter Visit Diagnoses Not on filedocumented in this encounter Additional Health Concerns Assessment Noted Time PHQ-9 Depression Total Score: 4 06/17/20 25 9:50 AM EDT documented as of this encounter Care Teams Nutrition Specialist Relationship Specialty Start Date End Date Carine Tapia MD [address] [place] [phone] PCP - General Family Medicine 10/23/17 documented as of this encounter
--- OUTSIDE RECORDS SUMMARY | 2024-10-25 16:15 | XMS_ITS | Clinical Summary ---
Author Organization [employer] Address [address] [place] [address] 7[address] [place] [address] Care Team Providers Care Gold And Silver Assayer Name Role Phone Carine Tapia MD Primary Care Provider Allergies No known active allergies Medications Albuterol Sulfate 108 (90 Base) MCG/ACT aerosol powder Inhale 1 Inhalation every 6 (six) hours if needed (shortness of breath). 1 each 2 3 Active fluticasone (Flonase) 50 MCG/ACT nasal spray USE ONE SPRAY IN EACH NOSTRIL DAILY 16 g 11 4 Active cholecalciferol (Vitamin D-3) 50 MCG (2000 UT) capsule Take 1 capsule (50 mcg) by mouth Once per day. 90 capsule 11 4 Active amitriptyline (Elavil) 25 MG tablet [...] 90 tablet 3 5 08/05/19 26 Active ergocalciferol (Vitamin D2) 1.25 MG (44262 UT) capsule Take 1 capsule (1.25 mg) by mouth 1 (one) time per week. 15 capsule 5 Active ferrous sulfate 325 (65 Fe) MG tablet Take 1 tab orally bid with 2 ozs of orange juice to increase absorption. 60 tablet 5 5 Active ibuprofen 400 MG tablet TAKE 1 TABLET BY MOUTH EVERY 8 HOURS NEEDED FOR PAIN 90 tablet 3 5 Active Active Problems Problem Noted Date Diagnosed [...] Encounters Date Type Department Care Team Description 10/25/2024 Orders Only GENERIC EXTERNAL DATA DEPARTMENT Provider, Generic External Data 08/19/2024 Refill [facility] [address] [place] [address] Carine Tapia MD 08/04/2024 9:15 AM EDT Office Visit [facility] [address] [place] [address] Carine Tapia MD Iron deficiency anemia due to chronic blood loss (Primary Dx); Low vitamin D level; Chronic fatigue; Routine general medical examination at a health care facility; Environmental allergies; Adjustment insomnia 08/04/2024 Refill [facility] [address] [place] [address] Carine Tapia MD 08/04/2024 Orders Only [facility] [address] [place] [address] Carine Tapia MD 08/04/2024 Travel from Last 3 Months Immunizations Immunization Administration [...] Q2 Not on file 07/24/2024 Comments Unknown Intention Date Recorded Not sure of desire to become (f inding) 08/04/2024 Sex and Gender Information Value Date Recorded Sex Assigned at Female 12/18/2021 10:34 AM EDT Legal Sex Female 10:34 AM EDT Gender Identity Female 12/18/2021 10:34 AM EDT Sexual Orientation Straight 12/18/2021 10 :34 AM EDT Last Filed Vital Signs Vital Sign Reading Time Taken Comments Blood Pressure 119/78 08/04/2024 9:25 AM EDT Pulse 66 08/04/2024 9:25 AM EDT Temperature 36.9 C (98.5 F) 08/04/2024 9:25 AM EDT Respiratory Rate 16 08/04/2024 9:25 AM EDT Oxygen Saturation 100% 04/23/2024 9:28 AM EST Inhaled Oxygen Concentration - - Weight 67.1 kg (148 lb) 08/04/2024 9:25 AM EDT Height 176.5 cm (5' 9.5 ) 08/04/2024 9:25 AM EDT Body Mass Index 21.54 08/04/2024 9:25 AM EDT Plan of Treatment Health Maintenance Due Date Last Done Comments HPV Vaccines (1 - 3-dose series) 02/01/2008 Hepatitis B Vaccines (1 of 3 - 19+ 3-dose series) 02/01/2012 Pneumococcal Vaccine: Pediatrics (0 to 5 Years) and At-Risk Patients (6 to 49) Years (1 of 2 - PCV) 02/01/2012 COVID-19 Vaccine ( season) 2024 01/30/2022, 02/22/2021, 07/25/2020 Influenza Vaccine (#1) 2024 11/08/2023, 2020 SDOH Screening 07/24/2025 07/24/2024 Alcohol/Substance Use Screening 08/04/2025 08/04/2024 Depression Screening 08/04/2025 08/04/2024, 08/05/19 25 Disability Screening 08/04/2025 08/04/2024 Family Planning (PISQ) 08/04/2025 08/04/2024 Tobacco Screening 08/04/2025 08/04/2024 DTaP/Tdap/Td Vaccines (2 - Td or Tdap) 04/20/2029 04/21/2019 Cervical Cancer Screening 04/23/2029 HPV/Cotest 04/23/2029 Pap Smear 04/23/2029 04/23/2024, 01/25/2021 Zoster Vaccines (1 of 2) 2043 RSV Patients and Patients Aged 60 years or older (1 - 1-dose 75+ series) 02/01/2068 HIV Screening Completed 10/11/2023, 050 08/2023, 06/22/2022, Additional history exists Hepatitis C Screening Completed 10/11/2023 , 06/25/2023, 06/22/2022, Additional history exists HIB Vaccines Aged Out No longer eligi [...] Procedure Name Priority Date/Time Associated Diagnosis Comments COVID-19 ID NOW (HICKEY) Routine 10/25/2024 3:46 PM EDT INFLUENZA A B2 ID NOW (HICKEY) Routine 10/25/2024 3:46 PM EDT TSH W/REFLEX TO FT4 Routine 08/04/2024 1 0:05 AM EDT Iron deficiency anemia due to chronic blood loss Low vitamin D level IRON AND TOTAL IRON BINDING CAPACITY Routine 08/04/2024 10:05 AM EDT Iron deficiency anemia due to chronic blood loss Low vitamin D level VITAMIN D,25-OH,TOTAL,IA Routine 08/04/2024 10:05 AM EDT Iron deficiency anemia due to chronic blood loss Low vitamin D level CBC WITH AUTO DIFFERENTIAL Routine 08/04/2024 10:05 AM EDT Iron deficiency anemia due to chronic blood loss Low vitamin D level PAP SMEAR Routine 04/23/2024 Encounter for gynecological [...] Recently Relevant to Health Maintenance Results * Influenza A B2 ID NOW (Brandle) (10/25/2024 3:46 PM EDT) IDNOW SERIAL# [id number] [facility] Influenza A Negative Negative [facility] Influenza B2 Negative Negative [facility] Influenza A B2 Note See Note [facility] Comment:The Hickey ID NOW In [...] LAB MICROBIOLOGY - GENERAL ORDERABLES Final Result [facility] [address] [place] [phone] * (ABNORMAL) COVID-19 ID NOW (HICKEY) (10/25/2024 3:46 PM EDT) IDNOW SERIAL# [id number] [facility] COVID-19 TEST Positive (A) Negative [facility] COVID-19 NOTE See Note [facility] Comment: Results are for the identification of SARS-CoV2 RNA. TheSARS-CoV2 RNA is generally detectable in respiratory samplesduring the acute phase of infection. Positive results areindicative of the presence of SARS-CoV-2 RNA; clinicalcorrelation with patient history and other diagnosticinformation is necessary to determine patient infectionstatus. Positive results do not rule out bacterial infectionor co- infection with other viruses.Testing facilities within the [facility] and itsterritories are required to report all [...] use by authorized laboratories.Testing performed on the UniYu NOW utilizing NAAT. 10/25/2024 3:46 PM EDT 10/25/2024 3:51 PM EDT us Generic External Data Provider LAB MOLECULAR RASHAD GNOSTICS ORDERABLES Final Result [facility] [address] [place] [address] [phone] * (ABNORMAL) Vitamin D, 25-Hydroxy, Total, Immunoassay (08/04/2024 10:05 AM EDT) Pathologist [facility] Vitamin D 25-OH Total 24.3(L) >30 ng/mL [facility] Comment: Health Based Reference Values*< 20 ng/mL Heagdhjve66-87 ng/mL Insufficient> 30 ng/mL Sufficient*Holick MF. N Engl J Med. 2007;357:266-280There is no well-established upper level of normal vitamin Dlevels. Some laboratories use 50 ng/mL as an upper limit ofnormal. However, toxicity is patient-dependent and may occurat any level. Careful correlation with the patient'spresentation is necessary and, if there is concern forvitamin D toxicity, treatment should be consideredirrespective of the serum level.Care must be taken in interpreting Vitamin D results fromdifferent laboratories and methodologies. Published datademonstrated that results from patients undergoinghemodialysis may show a negative bias when tested withvarious automated 25-OH vitamin D assays when compared toLC-MS/MS.When testing samples from patients whose predominant form ofVitamin D is Vitamin D2, such as patients receiving VitaminD2 supplementation, results that are subtherapeutic shouldbe confirmed with another method such as LC-MS/MS. Blood Venous blood specimen / Unknown 08/04/2024 10:05 AM EDT 08/04/2024 2:07 PM EDT Carine Tapia MD LAB BLOOD ORDERABLES Final Re sult Performing Organization Address [facility]/ZIP Co de Phone Number [facility] [address] [place] [phone] * TSH W/Reflex to FT4 (08/04/2024 10:05 AM EDT) TSH reflex Free T4 0.89 0.32 - 4.0 uIU/mL [facility] Blood Venous blood specimen / Unknown 08/04/2024 10:05 AM EDT 08/04/2024 2:07 PM EDT Carine Tapia MD LAB BLOOD ORDERABLES Final Re sult Performing Organization Address City/[facility]/ZIP Co de Phone Number [facility] [address] [place] [phone] * (ABNORMAL) CBC auto differential (08/04/2024 10:05 AM EDT) White Blood Count 5.7 4.8 - 10.8 X10*3/uL [facility] Red Blood Count 4.77 4.20 - 5.50 X10*6/uL [facility] Hemoglobin 10.7(L) 12.0 - 16.0 g/dl [facility] Hematocrit 34.5(L) 37.0 - 47.0 % [facility] Mean Corpuscular Volume 72.3(L) 80.0 - 98.0 fL [facility] Mean Corpuscular Hemoglobin 22.4(L) 27.0 - 33.0 pg [facility] Mean Corpuscular HGB Conc 31.0 31.0 - 35.0 g/dl [facility] Red Cell Distribution Width 16.5(H) 11.0 - 16.0 % [facility] Platelet Count 227 160 - 400 X10*3/uL [facility] Mean Platelet Volume TNP 9.4 - 12.3 fL [facility] Neutrophils Percent Auto 40.3(L) 45 - 73 % [facility] Imm Gran Pct Auto 0.4 0.0 - 0.4 % [facility] Lymphocytes Percent Auto 42.3(H) 20 - 40 % [facility] Monocytes Percent Auto 9.4 2 - 11 % [facility] Eosinophils Percent Auto 6.5(H) 0 - 4 % [facility] Basophils Percent Auto 1.1 0 - 2 % [facility] NRBC Pct Auto 0.0 0.0 - 0.2 /100WBC [facility] Neutrophils Absolute Auto 2.3 2.0 - 8.3 x10*3/uL [facility] Imm Gran Abs Auto 0.02 0.00 - 0.03 X10*3/uL [facility] Lymphocytes Absolute Auto 2.4 1.2 - 4.9 X10*3/uL [facility] Monocytes Absolute Auto 0.5 0.1 - 1.2 X10*3/uL [facility] Eosinophils Absolute Auto 0.4 0.0 - 0.4 X10*3/uL [facility] Basophils Absolute Auto 0.1 0.0 - 0.2 X10*3/uL [facility] NRBC Abs Auto 0.000 0.0 - 0.012 X10*3/uL [facility] Blood Venous blood specimen / Unknown 08/04/2024 10:05 AM EDT 08/04/2024 2:23 PM EDT Carine Tapia MD LAB BLOOD ORDERABLES Final Re sult Performing Organization Address City/[facility] Co de Phone Number [facility] [address] [place] [phone] [phone] * (ABNORMAL) Iron And Total Iron Binding Capacity (08/04/2024 10:05 AM EDT) Iron 27(L) 30 - 160 mcg/dL [facility] Total Iron Binding Capacity 354 228 - 428 mcg/dL [facility] Percent Iron Saturation 8(L) 15 - 50 % [facility] Unsaturated Iron Binding 327 ug/dL [facility] Blood Venous blood specimen / Unknown 08/04/2024 10:05 AM EDT 08/04/2024 2:07 PM EDT Carine Tapia MD LAB BLOOD ORDERABLES Final Re sult Performing Organization Address [facility]/ZIP Co de Phone Number [facility] [address] [place] [phone] [phone] * Pap Smear (04/23/2024) Swab Cervical swab / Unknown 04/23/2024 05/06/2024 6:14 AM EDT Narrative [facility] - 05/20/2024 6:28 AM EDT ----- ------- Name: Norris Carvalho Age/Sex: 29/F : 1995 Unit#: [id number] Attend Dr: Carine Tapia MD Re04/23/24 Status: DEP REF Location: [facility] Disch: ----- ------- SPEC : [id number] RECD: 05/06/24 STATUS: JOSE EDUARDOBarb ULICES NUM: [id number] CORKY: 04/23/24- SUBM DR: Carine Tapia MD ENTERED: 05/06/24 SP TYPE: Pap Smr OTHR DR: ORDERED: Pap Smear Interpretation Satisfactory for evaluation. Negative for intraepithelial lesion or malignancy. Coccobacilli consistent with shift in vaginal dillon. HPV High Risk: Negative HPV Genotyping 16: Negative HPV Genotyping 18: Negative Clinical Information LMP: Unk Previous PAP test: Unk Other surgery: Other history: Material Received ThinPrep ----- ------- Signed (signature on file) MJ Palomares (ASCP) 05/20/24 0628 ----- ------- END OF REPORT us Carine Tapia MD LAB CYTOLOGY ORDERABLES Final Result Performing Organization Address City/[facility]/ZIP Co de Phone Number [facility] [address] [place] [address] [phone] * Hepatitis C Antibody with Reflex to HCV, RNA, Quantitative, Real-Time PCR (10/11/2023 9:40 AM EDT) Hepatitis C Antibody Nonreactive Nonreactive [facility] Comment:Antibodies to HCV no t detected; does not exclude early acuteHCV infection. Blood Venous blood specimen / Unknown 10/11/2023 9:40 AM EDT 10/11/2023 2:19 PM EDT us Carine Tapia MD LAB BLOOD ORDERABLES Final Re sult Performing Organization Address City/[facility]/ZIP Co de Phone Number [facility] [address] [place] [phone] * HIV-1/2 Antigen and Antibodies, Fourth Generation, with Reflexes (10/11/2023 9:40 AM EDT) HIV AB/AG Nonreactive Nonreactive [facility] Comment:HIV-1 p24 Ag and/or HIV-1/HIV-2 Ab not detected.A test result that is nonreactive does not exclude thepossibility of exposure to or infection with HIV-1 and/orHIV-2. Nonreactive results in this assay for individualswith prior exposure to HIV-1 and/or HIV-2 may be due toantigen and antibody levels that are below the limit ofdetection of this assay.The [employer] HIV Ag/Ab Combo assay result andsupplemental assay results should be interpreted inconjunction with the patient's clinical presentation,history and other laboratory results. If the results areinconsistent with clinical evidence, additional testing issuggested to confirm the result. Blood Venous blood specimen / Unknown 10/11/2023 9:40 AM EDT 10/11/2023 2:19 PM EDT us Carine Tapia MD LAB BLOOD ORDERABLES Final Re sult [facility] [address] [place] [address] [phone] from Last 3 Months or Most Recently Relevant to Health Maintenance [facility] Care Teams Gold And Silver Assayer Relationship Specialty Start Date End Date Carine Tapia MD [address] [place] [address] PCP - General Family Medicine 10/23/17
--- OUTSIDE RECORDS SUMMARY | 2024-10-25 16:15 | XMS_ITS | Encounter Summary ---
Author Organization [email or web address] Address [address] [facility] 7 [place] [address] Care Team Providers Care Cardiac Cath Lab Manager Name Role Phone Carine Tapia MD Primary Care Provider [phone] Reason for Visit * Reason Onset Date Comments Appointment Request 05/21/2022 Encounter Details Date Type Department Care Team ([facility] st Contact Info) Description 05/21/2022 Telephone [facility] [address] [place] [address] Carine Tapia MD [address] [place] [address] Appointment Request Social History Tobacco Use Types [...] is requiring pt to have an updatedphysical. Character Actress attempted to book appt with PCP no available appt. Pt stated wont mind being seen by a different provider. Please contact pt at [phone] documented in this encounter Plan of Treatment Not on file documented as of this encounter Visit Diagnoses Not on filedocumented in this encounter Care Teams Cardiac Cath Lab Manager Relationship Specialty Start Date End Date Carine Tapia MD [address] [place] [phone] PCP - General Family Medicine 10/23/17 documented as of this encounter
--- OUTSIDE RECORDS SUMMARY | 2024-10-25 16:15 | XMS_ITS | Encounter Summary ---
Author Organization [employer] Address [address] [facility] [address] [place] [address] Care Team Providers Care Hat Renovator Name Role Phone Carine Tapia MD Primary Care Provider [phone] Reason for Visit * Reason Onset Date Comments Med Refill 08/04/2024 Encounter Details Date Type Department Care Team ([facility] st Contact Info) Description 08/04/2024 Refill [facility] [address] [place] [address] Carine Tapia MD [address] [place] [address] Social History Tobacco Use Types Packs/Day Years [...] AM EDT documented as of this encounter Functional Status * Over the past 2 weeks, how often have you been bothered by any of the following problems? Question Answer Date of Assessment Author Patient Health Questionnaire -2 Score 1 08/04/2024 9:50 AM Brady Peterson MA * Little interest or pleasure in doing things Answer Date of Assessment Author Several days 08/04/2024 9:50 AM Velvet Peterson MA * Feeling down, depressed, or hopeless Answer Date of Assessment Author Not at all 08/04/2024 9:50 AM Velvet Peterson MA * Trouble falling or staying asleep, or sleeping too much Answer Date of Assessment Author Several days 08/04/2024 9:50 AM Velvet Peterson MA * Feeling tired or having little energy Answer Date of Assessment Author Several days 08/04/2024 9:50 AM Velvet Peterson MA * Poor appetite or overeating Answer Date of Assessment Author Not at all 08/04/2024 9:50 AM Velvet Peterson MA * Feeling bad about yourself - or that you are a failure or have let yourself or your family down Answer Date of Assessment Author Several days 08/04/2024 9:50 AM Velvet Peterson MA * Trouble concentrating on things, such as reading the newspaper or watching television Answer Date of Assessment Author Not at all 08/04/2024 9:50 AM EDT Velvet Bruno MA * Moving or speaking so slowly that other people could have noticed? Or the opposite - being so fidgety or restless that you have been moving around a lot more than usual. Answer Date of Assessment Author Not at all 08/04/2024 9:50 AM EDVelvet Nunez MA * Thoughts that you would be better off or hurting yourself in some way Answer Date of Assessment Author Not at all 08/04/2024 9:50 AM Velvet Peterson MA * Patient Health Questionnaire-9 Score Answer Date of Assessment Author 4 08/04/2024 9:50 AM Velvet Peterson MA * How difficult have these problems made it for you to do your work, take care of things at home, or get along with other people? Answer Date of Assessment Author Not difficult at all 08/04/2024 9:50 AM EDT Velvet Cameron MA documented as of this encounter Plan of Treatment Not on file documented as of this encounter Visit Diagnoses Not on filedocumented in this encounter Additional Health Concerns Assessment Noted Time PHQ-9 Depression Total Score: 4 08/05/19 25 9:50 AM EDT documented as of this encounter Care Teams Hat Renovator Relationship Specialty Start Date End Date Carine Tapia MD [address] [place] [address] [place] [address] PCP - General Family Medicine 10/23/17 documented as of this encounter
[2024-10-25 16:33] VITALS: BP 127/70; PULSE 119; RESP 20; TEMP 38.6; O2SAT 100
[2024-10-25 17:57] LABS: IDNOW Serial# 55D5AD1C; Strep A Nucleic Acid Negative (Negative)
== END 2024-10-25 16:33 | disposition home or self-care (01) ==
PROVIDERS: Emergency Provider Student in an Organized Health Care Education/Training Program; PCP Pediatrics
DX: U07.1 COVID-19 (principal); R51.9 Headache, unspecified; M79.10 Myalgia, unspecified site; R00.0 Tachycardia, unspecified; R05.9 Cough, unspecified; R06.02 Shortness of breath; Z79.899 Other long term (current) drug therapy
CPT/HCPCS: 71046; 87502; 87635; 87651; 93005; 99283

== ENCOUNTER → 2024-10-25 15:31 | Outpatient (BNV) | payer MEDICAID, SELFPAY | PROVIDERS: Emergency Provider Student in an Organized Health Care Education/Training Program; PCP Pediatrics; Visit Provider Internal Medicine Cardiovascular Disease | DX: I45.10 Unspecified right bundle-branch block (principal); R00.0 Tachycardia, unspecified | CPT/HCPCS: 93010 ==

== ENCOUNTER → 2024-10-25 15:31 | Outpatient (BNV) | payer MEDICAID, SELFPAY | PROVIDERS: Emergency Provider Student in an Organized Health Care Education/Training Program; PCP Pediatrics; Visit Provider Radiology Diagnostic Radiology | DX: R07.9 Chest pain, unspecified (principal) | CPT/HCPCS: 71046 ==